=== PATIENT | female | born 1960 | race Caucasian/White ===

== ENCOUNTER 2020-09-01 14:14 | Outpatient (REF) | payer OTHER, SELFPAY ==
--- NOTE | ~2020-09-01 | MM_ITS ---
EXAMINATION: MM SCREENING DIGITAL BREAST TOMOSYNTHESIS, BILATERAL CLINICAL INFORMATION: Screening. Asymptomatic. The lifetime risk of breast cancer based on the Tyrer-Cuzick Model is 8%. COMPARISON: Mammography: 12/29/2019, 08/22/2018, 08/01/2017 TECHNIQUE: Digital breast tomosynthesis is performed in both the craniocaudal and mediolateral oblique views along with computer-aided detection (CAD). Synthesized 2D images are generated from the tomosynthesis. FINDINGS: The breasts are heterogeneously dense, which may obscure small masses (ACR BI-RADS breast composition Category c). Denser breast parenchymal tissue composition resides in the upper outer quadrants. The parenchymal pattern is similar to prior studies. Nodularity mid medial right breast and central lower left breast are decreased. There is no interval mass or architectural abnormality. There are some punctate calcifications again seen in the upper outer quadrants. The axilla and skin contours are unremarkable. No significant changes from prior studies. MM/MM tomosynthesis screening BI IMPRESSION: No significant changes from prior studies. ASSESSMENT: BI-RADS 2: Benign RECOMMENDATION: Routine annual mammography screening. This patient's information was entered into a reminder system with a target due date for their next mammogram.
== END 2020-09-01 14:15 | disposition home or self-care (01) ==
LOC: HO.MAMMO 14:14
PROVIDERS: Visit Provider Internal Medicine
DX: Z12.31 Encounter for screening mammogram for malignant neoplasm of breast (principal)
CPT/HCPCS: 77063; 77067

== ENCOUNTER 2021-01-28 02:52 | Emergency (ER) | payer OTHER, SELFPAY ==
--- NOTE | ~2021-01-28 | CT_ITS ---
EXAMINATION: CT ABDOMEN AND PELVIS WITHOUT CONTRAST CLINICAL INFORMATION: Right flank pain COMPARISON: None TECHNIQUE: Multidetector volumetric imaging was performed from the superior aspect of the liver through the pubic symphysis. Sagittal and coronal reformatted images were obtained on the technologist's workstation. This CT examination was performed using dose optimization techniques as appropriate, variously including the following: *Automated exposure control *Adjustment of mA and/or kV according to patient size (this includes techniques or standardized protocols for targeted exams where dose is matched to indication/reason for exam; i.e. extremities or head) *Use of iterative reconstruction technique DLP: 646 mGy-cm FINDINGS: LUNG BASES: The visualized lung bases are unremarkable. LIVER, GALLBLADDER, AND BILIARY TREE: Liver normal in size, contour and morphology. Mild diffuse hepatic steatosis. No focal liver lesions. No intra or extrahepatic biliary dilatation. Gallbladder unremarkable. PANCREAS: Unremarkable. SPLEEN: Unremarkable. ADRENAL GLANDS: Unremarkable. KIDNEYS AND URETERS: The kidneys are normal in size, shape, and attenuation. No hydronephrosis, hydroureter, or calculi seen. No perinephric stranding. BLADDER: Unremarkable. GASTROINTESTINAL TRACT: The small and large bowel are unremarkable. The appendix is unremarkable. ABDOMINAL WALL: No significant hernia is appreciated. LYMPH NODES: Normal. VASCULAR: Aorta mildly atherosclerotic. There is a 1.3 cm sac splenic artery aneurysm. PELVIC VISCERA: Leiomyomatous uterus, with dominant posterior uterine fibroid measuring 5.6 cm, subserosal however not pedunculated. No adnexal abnormalities. OSSEOUS STRUCTURES: No acute or suspicious osseous abnormalities. CT/CT abdomen pelvis wo con IMPRESSION: * No acute findings within the abdomen or pelvis. * No urinary calculi or hydronephrosis. * Mild hepatic steatosis.
[2021-01-28 03:08] VITALS: BP 167/72; PULSE 70; RESP 16; TEMP 36.2; O2SAT 98; BMI 44.5
[2021-01-28 03:29] LABS: MANUAL DIFF FLAG NO
[2021-01-28 03:30] LABS: Basophils Percent Auto 0.4 % (0-2); Eosinophils Absolute Auto 0.2 X10*3/uL (0.0-0.4); Eosinophils Percent Auto 2.7 % (0-4); Hematocrit 40.7 % (37.0-47.0); Hemoglobin 13.7 g/dl (12.0-16.0); Imm Gran Abs Auto 0.02 X10*3/uL (0.00-0.03); Imm Gran Pct Auto 0.3 % (0.0-0.4); Lymphocytes Absolute Auto 2.1 X10*3/uL (1.2-4.9); Lymphocytes Percent Auto 27.7 % (20-40); Mean Corpuscular HGB Conc 33.7 g/dl (31.0-35.0); Mean Corpuscular Volume 89.1 fL (80.0-98.0); Monocytes Absolute Auto 0.8 X10*3/uL (0.1-1.2); Monocytes Percent Auto 10.6 % (2-11); Neutrophils Absolute Auto 4.5 x10*3/uL (2.0-8.3); Neutrophils Percent Auto 58.3 % (45-73); Platelet Count 294 X10*3/uL (160-400); Red Blood Count 4.57 X10*6/uL (4.20-5.50); Red Cell Distribution Width 12.4 % (11.0-16.0); White Blood Count 7.7 X10*3/uL (4.8-10.8)
[2021-01-28 03:45] LABS: Appearance Urine CLEAR; Color Urine YELLOW; Glucose Urine UA NEG (NEG); Leukocyte Esterase Urine NEG (NEG); Nitrite Urine NEG (NEG); PH 6.5 (5.0-8.0); Specific Gravity - Urine 1.025 (1.005-1.025); UACC Culture Trigger NO; Urine Blood 1+ (NEG); Urine Ketones NEG (NEG); Urine Protein NEG (NEG-TRACE)
[2021-01-28 03:47] LABS: Alanine Aminotransferase 28 U/L (0-31); Albumin Level 4.2 g/dL (3.5-5.0); Alkaline Phosphatase 104 U/L (39-117); Anion Gap 13 (12-20); Aspartate Amino Transferase 19 U/L (5-31); Bilirubin Total 0.6 mg/dL (0.0-1.0); Blood Urea Nitrogen 17 mg/dL (9-16); Calcium 9.3 mg/dL (8.4-10.2); Carbon Dioxide 24 mmol/L (22-29); Chloride 108 mmol/L (96-108); Creatinine Clr Calc Pharmacy 52.7; Estimated Glomerular Filt Rate > 60; Glucose Random 134 mg/dL (60-115); Lipase 25 U/L (8-78); Sodium 141 mmol/L (135-145); Total Protein 7.3 g/dL (6.5-8.0)
--- NOTE | 2021-01-28 03:47 | ED_ITS ---
HPI - Abdominal Pain General Chief Complaint: Abdominal Pain Stated Complaint: Flank pain Time Seen by Provider: 01/28/21 03:46 History of Present Illness HPI narrative: 60 years old presents today with having flank pain over the right side. Rating down to the right lower quadrant. Sharp in nature onset about 4-5 days ago. On and off no specific triggers. No fever no chills. No history kidney stone. Positive history of nausea. Patient denies any pain on urination. Denies any frequency. Denies any change in bowel movements. No cough congestion or respiratory symptoms. No diaphoresis Related Data Allergies Allergy/AdvReac Type Severity Reaction Status Date / Time No Known Allergies Allergy Unverified 01/28/21 03:10 Review of Systems Review of Systems Positive pain in the right flank area Yes all other systems are reviewed and are negative Physical Exam Vital Signs: Vital Signs: Last Vital Signs Temp 97.1 F 01/28/21 03:08 Pulse 70 01/28/21 03:08 Resp 16 01/28/21 03:08 BP 167/72 H 01/28/21 03:08 Pulse Ox 98 01/28/21 03:08 BMI result Body Mass Index 44.5 Appearance: Alert. Oriented X3. No acute distress. Eyes: Pupils equal, round and reactive to light. ENT: Pharynx normal. Neck: Normal inspection. Neck supple. No lymph nodes noted. No crepitus CVS: Normal heart rate and rhythm. Pulses normal. Normal S1 and S2 Respiratory: No respiratory distress. Breath sounds normal. No Wheezing. No rales Abdomen: Soft and nontender. No rigidity. No distention. good BS x4 Skin: Skin warm and dry. Normal skin color. Normal skin turgor. Extremities: No lower extremity edema. Neurovascular intact to all extremities. No Lacerations. No Rash Neuro: Oriented X 3. No motor deficit. No sensory deficit. Moving all extermities. No slurred speech MDM - Abdominal Pain MDM Narrative Medical decision making narrative: Patient's white count was normal. Electrolytes unremarkable. CT scan of the abdomen pelvis negative for any acute evidence of kidney stone, obstruction, abscess, appendicitis. Will discharge patient home close follow-up on an outpatient basis. In stable condition. Urine showed no signs of infection. Differential Diagnosis Differential diagnosis: Likely abdominal pain Medical Records Attestation: I reviewed the patient's medical records. Lab Data Attestation: I reviewed the patient's lab results. Result diagrams: 01/28/21 03:24 01/28/21 03:24 Labs: Lab Results 01/28/21 01/28/21 01/28/21 Range/Units 03:21 03:24 03:24 WBC 7.7 (4.8-10.8) X10*3/uL RBC 4.57 (4.20-5.50) X10*6/uL Hgb 13.7 (12.0-16.0) g/dl Hct 40.7 (37.0-47.0) % MCV 89.1 (80.0-98.0) fL MCH 30.0 (27.0-33.0) pg MCHC 33.7 (31.0-35.0) g/dl RDW 12.4 (11.0-16.0) % Plt Count 294 (160-400) X10*3/uL MPV 10.0 (9.4-12.3) fL Immature Gran % (Auto) 0.3 (0.0-0.4) % Neut % (Auto) 58.3 (45-73) % Lymph % (Auto) 27.7 (20-40) % Sac % (Auto) 10.6 (2-11) % Eos % (Auto) 2.7 (0-4) % Baso % (Auto) 0.4 (0-2) % Lymph # (Auto) 2.1 (1.2-4.9) X10*3/uL Sac # (Auto) 0.8 (0.1-1.2) X10*3/uL Eos # (Auto) 0.2 (0.0-0.4) X10*3/uL Baso # (Auto) 0.0 (0.0-0.2) X10*3/uL Abs Immat Gran (auto) 0.02 (0.00-0.03) X10*3/uL Absolute Neuts (auto) 4.5 (2.0-8.3) x10*3/uL Absolute Nucleated RBC 0.000 (0.0-0.012) X10*3/uL Nucleated RBC % (auto) 0.0 (0.0-0.2) /100WBC Sodium 141 (135-145) mmol/L Potassium 4.0 (3.3-5.1) mmol/L Chloride 108 (96-108) mmol/L Carbon Dioxide 24 (22-29) mmol/L Anion Gap 13 (12-20) BUN 17 H (9-16) mg/dL Creatinine 0.72 (0.5-1.4) mg/dL Estim Creat Clear Calc 52.7 Estimated GFR > 60 Random Glucose 134 H (60-115) mg/dL Calcium 9.3 (8.4-10.2) mg/dL Total Bilirubin 0.6 (0.0-1.0) mg/dL AST 19 (5-31) U/L ALT 28 (0-31) U/L Alkaline Phosphatase 104 (39-117) U/L Total Protein 7.3 (6.5-8.0) g/dL Albumin 4.2 (3.5-5.0) g/dL Lipase 25 (8-78) U/L Urine Color YELLOW Urine Appearance CLEAR Urine pH 6.5 (5.0-8.0) Ur Specific [place] 1.025 (1.005-1.025) Urine Protein NEG (NEG-TRACE) MG/DL Urine Glucose (UA) NEG (NEG) MG/DL Urine Ketones NEG (NEG) MG/DL Urine Blood 1+ H (NEG) Urine Nitrite NEG (NEG) Ur Leukocyte Esterase NEG (NEG) Urine RBC 5-9 H (0) /HPF Urine WBC 1-4 (0-4) /HPF Ur Squamous Epith Cells 2+ /LPF Urine Bacteria 2+ /LPF Urine Mucus 2+ /LPF Discharge Plan Discharge Clinical Impression: Abdominal pain Patient Disposition: Home, Self-Care Instructions: Abdominal Pain (ED) Referrals: Physician,Unknown J [Primary Care Provider] - 2 days [facility] Past Medical History Attestation statement: The following information was validated with the patient. Social History Social History Advance Directives: No
[2021-01-28 03:56] LABS: Squamous Epithelial Cell Urine 2+ /LPF
[2021-01-28] MEDS: Ketorolac Tromethamine 15 MG/ML VIAL IVPUSH (03:56)
[2021-01-28 03:57] LABS: Bacteria Urine 2+ /LPF; Mucus Urine 2+ /LPF
[2021-01-28] MEDS: 0.9 % Sodium Chloride 1,000 ML 999 ML IV (03:57)
== END 2021-01-28 05:24 | disposition home or self-care (01) ==
PROVIDERS: Emergency Provider Emergency Medicine Emergency Medical Services
DX: R10.9 Unspecified abdominal pain (principal)
CPT/HCPCS: 36415; 74176; 80053; 81001; 83690; 85025; 96361; 96374; 99284; J1885

== ENCOUNTER 2021-12-18 08:22 | Outpatient (REF) | payer OTHER, SELFPAY ==
[2021-12-18 10:13] LABS: Hematocrit 43.7 % (37.0-47.0); Hemoglobin 14.4 g/dl (12.0-16.0); Mean Corpuscular Volume 88.1 fL (80.0-98.0); Mean Platelet Volume 10.5 fL (9.4-12.3); Platelet Count 334 X10*3/uL (160-400); Red Blood Count 4.96 X10*6/uL (4.20-5.50); Red Cell Distribution Width 12.4 % (11.0-16.0); White Blood Count 6.3 X10*3/uL (4.8-10.8)
[2021-12-18 10:30] LABS: Estimated Average Glucose 143 mg/dL; Hemoglobin A1c % 6.6 %
[2021-12-18 10:54] LABS: Alanine Aminotransferase 52 U/L (0-31); Albumin Level 4.4 g/dL (3.5-5.0); Alkaline Phosphatase 124 U/L (39-117); Anion Gap 17 (12-20); Aspartate Amino Transferase 34 U/L (5-31); Bilirubin Total 0.8 mg/dL (0.0-1.0); Blood Urea Nitrogen 15 mg/dL (9-16); Calcium 9.8 mg/dL (8.4-10.2); Carbon Dioxide 24 mmol/L (22-29); Chloride 102 mmol/L (96-108); Cholesterol 249 mg/dL; Estimated Glomerular Filt Rate > 60; Glucose Random 125 mg/dL (60-115); HDL Cholesterol 54 mg/dL; LDL Cholesterol Calculated 173 mg/dl; Potassium 4.3 mmol/L (3.3-5.1); Sodium 139 mmol/L (135-145); Triglycerides 110 mg/dL
[2021-12-18 11:01] LABS: HBS Num1 34.32 mIU/mL (0-7.99); HBc Num1 0.09 S/CO (0.00-0.79); HBsAGNum1 0.17 S/CO (0.00-0.99); HIV AB/AG Nonreactive (Nonreactive); HIV Num 1 0.07 S/CO (0.00-0.99); Hepatitis B Core Antibody Nonreactive (Nonreactive); Hepatitis B Surface Antigen Negative (Negative); ~HepC Num1 0.21 S/CO (0.00-0.79); ~Hepatitis B Surface Antibody REACTIVE (Nonreactive); ~Hepatitis C Antibody Nonreactive (Nonreactive)
[2021-12-18 11:02] LABS: TSH reflex Free T4 0.86 uIU/mL (0.32-4.0)
[2021-12-18 11:07] LABS: Syphilis Screen Nonreactive (Nonreactive)
== END 2021-12-18 08:23 | disposition home or self-care (01) ==
LOC: HO.LAB 08:22
PROVIDERS: PCP Nurse Practitioner Primary Care; Visit Provider Nurse Practitioner Primary Care
DX: Z00.00 Encounter for general adult medical examination without abnormal findings (principal); Z11.4 Encounter for screening for human immunodeficiency virus [HIV]; Z11.3 Encounter for screening for infections with a predominantly sexual mode of transmission; Z13.220 Encounter for screening for lipoid disorders; R73.03 Prediabetes
CPT/HCPCS: 36415; 80053; 80061; 83036; 84443; 85027; 86704; 86706; 86780; 86803; 87340; 87389

== ENCOUNTER 2022-01-13 14:37 | Outpatient (REF) | payer OTHER, SELFPAY ==
--- NOTE | ~2022-01-13 | MM_ITS ---
EXAMINATION: MM SCREENING DIGITAL BREAST TOMOSYNTHESIS, BILATERAL CLINICAL INFORMATION: Screening. Asymptomatic. The lifetime risk of breast cancer based on the Tyrer-Cuzick Model is 10%. COMPARISON: Mammography: 09/01/2020, 08/28/2019, 08/22/2018 TECHNIQUE: Digital breast tomosynthesis is performed in both the craniocaudal and mediolateral oblique views along with computer-aided detection (CAD). Synthesized 2D images are generated from the tomosynthesis. FINDINGS: The breasts are heterogeneously dense, which may obscure small masses (ACR BI-RADS breast composition Category c). There are no significant masses, abnormal calcifications, or other abnormalities. Parenchymal pattern is similar to prior studies. No developing density or interval architectural abnormality. The axilla and skin contours are unremarkable. MM/MM tomosynthesis screening BI IMPRESSION: No mammographic evidence of malignancy. ASSESSMENT: BI-RADS 1: Negative RECOMMENDATION: Routine annual mammography screening. This patient's information was entered into a reminder system with a target due date for their next mammogram.
== END 2022-01-13 14:38 | disposition home or self-care (01) ==
LOC: HO.MAMMO 14:37
PROVIDERS: PCP Nurse Practitioner Primary Care; Visit Provider Nurse Practitioner Primary Care
DX: Z12.31 Encounter for screening mammogram for malignant neoplasm of breast (principal)
CPT/HCPCS: 77063; 77067

== ENCOUNTER 2022-01-28 12:39 | Outpatient (REF) | payer OTHER, SELFPAY ==
--- NOTE | ~2022-01-28 | MM_ITS ---
EXAMINATION: BONE DENSITOMETRY CLINICAL INDICATION: Menopausal state. COMPARISON: None (current study represents initial baseline exam). TECHNIQUE: Using a [employer] DXA System (software version: 13.1) manufactured by [employer], dual-energy x-ray absorptiometry was performed of the lumbar spine and left hip. The images are of good technical quality. Summary results are attached. FINDINGS: AP SPINE L1-L4: BMD 0.971 g/cm2, Z-score -0.7, T-score -1.7, osteopenia. LEFT FEMUR, NECK: BMD 0.704 g/cm2, Z-score -1.3, T-score -2.4, osteopenia. LEFT FEMUR, TOTAL: BMD 0.934 g/cm2, Z-score 0.2, T-score -0.6, normal. IDENTIFIED RISK FACTORS: Menopause, tobacco use (current smoker). HISTORY OF FRACTURE: None listed. MEDICATIONS: None listed. MM/XR DEXA axial skeleton IMPRESSION: 1. DIAGNOSIS: Osteopenia based on the lowest T-score value of -2.4 in the femoral neck applying World Health Organization criteria. 2. 10-YEAR FRACTURE RISK PREDICTION, FRAX: Major osteoporotic fracture (clinical spine, forearm, hip or shoulder) 6.4%. Hip fracture 1.7%. 3. Treatment Recommendations: NOF guidelines recommend consideration for treatment in postmenopausal women and men age 50 and older presenting with the following: -A hip or vertebral (clinical or morphometric) fracture. -T-score less than or equal to -2.5 at the femoral neck or spine after appropriate evaluation to exclude secondary causes. -Low bone mass at the hip or spine and a 10-year fracture probability by FRAX of greater than or equal to 3% for hip fracture or greater than or equal to 20% for major osteoporotic fracture based on the [place] adapted WHO algorithm. 4. Other Recommendations: All treatment decisions require clinical judgment and consideration of individual patient factors, including patient preferences, comorbidities, previous drug use, risk factors not captured in the FRAX model (e.g. frailty, falls, vitamin D deficiency, increased bone turnover, interval significant decline in bone density) and possible under or overestimation of fracture risk by FRAX. Additional medical evaluation for secondary cause of low bone mineral density may be appropriate. FUTURE SCAN RECOMMENDATION: People with diagnosed cases of osteoporosis or at high risk for fracture should have regular bone mineral density tests. For patients eligible for Medicare, routine testing is allowed once every 2 years. The testing frequency can be increased to one year for patients who have rapidly progressing disease, those who are receiving or discontinuing medical therapy to restore bone mass, or have additional risk factors.
== END 2022-01-28 12:40 | disposition home or self-care (01) ==
LOC: HO.MAMMO 12:39
PROVIDERS: PCP Nurse Practitioner Primary Care; Visit Provider Advanced Practice Midwife
DX: Z13.820 Encounter for screening for osteoporosis (principal); Z78.0 Asymptomatic menopausal state
CPT/HCPCS: 77080

== ENCOUNTER 2022-02-26 12:49 | Outpatient (REF) | payer OTHER, SELFPAY ==
--- NOTE | ~2022-02-26 | US_ITS ---
EXAMINATION: US PELVIS COMPLETE CLINICAL INFORMATION: Pelvic and perineal pain COMPARISON: CT abdomen pelvis 01/28/2021 TECHNIQUE: Transabdominal imaging was performed. FINDINGS: The uterus mildly enlarged measuring 9.7 x 5.2 x 6.7 cm. The endometrium was not identified via transabdominal technique and underlying myomas. 2 uterine myomas including a 3.6 cm intramural myoma and a 3.8 mm subserosal myoma. Ovaries were not identified sonographically. No adnexal mass identified within the limitations of transabdominal technique. There is no pelvic free fluid. US/US pelvic complete IMPRESSION: Limited transabdominal only exam. Enlarged myomatous uterus with subserosal and intramural myomas measuring up to 3.8 cm. The endometrium was not identified within limitations. Ovaries were not identified sonographically. No adnexal mass.
== END 2022-02-26 12:50 | disposition home or self-care (01) ==
LOC: HO.US 12:49
PROVIDERS: PCP Nurse Practitioner Primary Care; Visit Provider Advanced Practice Midwife
DX: D25.9 Leiomyoma of uterus, unspecified (principal)
CPT/HCPCS: 76856

== ENCOUNTER 2022-11-30 12:39 | Outpatient (REF) | payer OTHER, SELFPAY ==
--- NOTE | ~2022-11-30 | US_ITS ---
EXAMINATION: US PELVIS CLINICAL INFORMATION: Benign neoplasm of connective tissue and soft tissue. COMPARISON: Pelvic ultrasound 02/26/2022. TECHNIQUE: Transabdominal and transvaginal imaging was performed. FINDINGS: Hysterectomy. The right ovary is not seen. The left ovary is not seen. No pelvic free fluid. US/US pelvic and transvaginal IMPRESSION: Hysterectomy. Neither ovary is seen. No pelvic free fluid.
== END 2022-11-30 12:40 | disposition home or self-care (01) ==
LOC: HO.US 12:39
PROVIDERS: PCP Nurse Practitioner Primary Care; Visit Provider Advanced Practice Midwife
DX: D21.9 Benign neoplasm of connective and other soft tissue, unspecified (principal)
CPT/HCPCS: 76830; 76856

== ENCOUNTER 2023-09-27 09:37 | Outpatient (REF) | payer OTHER, SELFPAY ==
[2023-09-27 11:19] LABS: MANUAL DIFF FLAG NO
[2023-09-27 11:26] LABS: Basophils Percent Auto 0.5 % (0-2); Eosinophils Absolute Auto 0.2 X10*3/uL (0.0-0.4); Eosinophils Percent Auto 2.4 % (0-4); Hematocrit 40.7 % (37.0-47.0); Hemoglobin 13.9 g/dl (12.0-16.0); Imm Gran Abs Auto 0.02 X10*3/uL (0.00-0.03); Imm Gran Pct Auto 0.3 % (0.0-0.4); Lymphocytes Absolute Auto 1.5 X10*3/uL (1.2-4.9); Lymphocytes Percent Auto 22.8 % (20-40); Mean Corpuscular HGB Conc 34.2 g/dl (31.0-35.0); Mean Corpuscular Hemoglobin 29.6 pg (27.0-33.0); Mean Corpuscular Volume 86.8 fL (80.0-98.0); Mean Platelet Volume 10.3 fL (9.4-12.3); Monocytes Absolute Auto 0.5 X10*3/uL (0.1-1.2); Monocytes Percent Auto 7.7 % (2-11); Neutrophils Absolute Auto 4.4 x10*3/uL (2.0-8.3); Neutrophils Percent Auto 66.3 % (45-73); Platelet Count 333 X10*3/uL (160-400); Red Blood Count 4.69 X10*6/uL (4.20-5.50); Red Cell Distribution Width 13.1 % (11.0-16.0); White Blood Count 6.6 X10*3/uL (4.8-10.8)
[2023-09-27 11:43] LABS: Estimated Average Glucose 146 mg/dL; Hemoglobin A1c % 6.7 % (<6.0)
[2023-09-27 12:03] LABS: Alanine Aminotransferase 51 U/L (0-31); Albumin Level 4.1 g/dL (3.5-5.0); Alkaline Phosphatase 128 U/L (39-117); Anion Gap 15 (12-20); Aspartate Amino Transferase 34 U/L (5-31); Bilirubin Total 0.7 mg/dL (0.0-1.0); Blood Urea Nitrogen 15 mg/dL (9-16); Calcium 9.3 mg/dL (8.4-10.2); Carbon Dioxide 26 mmol/L (22-29); Chloride 103 mmol/L (96-108); Cholesterol 218 mg/dL (<200); Estimated Glomerular Filt Rate > 60; Glucose Random 148 mg/dL (60-115); HDL Cholesterol 58 mg/dL (>40); LDL Cholesterol Calculated 129 mg/dL (<100); Potassium 3.9 mmol/L (3.3-5.1); Sodium 140 mmol/L (135-145); Total Protein 7.4 g/dL (6.5-8.0); Triglycerides 159 mg/dL (<150); Vitamin D 25-OH Total 26.1 ng/mL (>30)
== END 2023-09-27 09:38 | disposition home or self-care (01) ==
LOC: HO.HHCL 09:37
PROVIDERS: Visit Provider Nurse Practitioner Primary Care
DX: R73.03 Prediabetes (principal); E78.5 Hyperlipidemia, unspecified; M79.605 Pain in left leg; M85.80 Other specified disorders of bone density and structure, unspecified site; Z78.0 Asymptomatic menopausal state
CPT/HCPCS: 36415; 80053; 80061; 82306; 83036; 85025

== ENCOUNTER 2023-09-27 15:28 | Outpatient (REF) | payer OTHER, SELFPAY ==
--- NOTE | ~2023-09-27 | US_ITS ---
EXAMINATION: US SOFT TISSUE OF THE NECK CLINICAL INFORMATION: Localized enlarged lymph nodes. COMPARISON: None available. TECHNIQUE: Linear transducer grayscale and color Doppler examination of the cervical neck. FINDINGS: A few normal-sized, normal-appearing lymph nodes are noted within the right and left neck. No well-organized superficial fluid collection is identified. No abnormal color Doppler flow. Incidentally noted is a 1.2 cm left thyroid nodule which contains some peripheral calcification. US/US soft tiss head and/or neck IMPRESSION: 1. Normal-appearing lymph nodes are noted within the right and left neck. 2. Incidentally noted is a 1.2 cm left thyroid nodule. Dedicated thyroid ultrasound may be warranted. Electronically signed by: Niko Hansen MD 10/22/2023 09:27 AM EDT
== END 2023-09-27 15:29 | disposition home or self-care (01) ==
LOC: HO.MAMMO 15:28
PROVIDERS: Visit Provider Nurse Practitioner Primary Care
DX: Z12.31 Encounter for screening mammogram for malignant neoplasm of breast (principal); R59.0 Localized enlarged lymph nodes; F17.200 Nicotine dependence, unspecified, uncomplicated
CPT/HCPCS: 76536; 77063; 77067

== ENCOUNTER → 2023-09-27 15:45 | Outpatient (BNV) | payer OTHER, SELFPAY | PROVIDERS: Visit Provider Radiology Diagnostic Radiology | DX: Z12.31 Encounter for screening mammogram for malignant neoplasm of breast (principal) | CPT/HCPCS: 77063; 77067 ==

== ENCOUNTER 2023-10-14 12:52 | Outpatient (AMB) | payer OTHER, SELFPAY ==
--- NOTE | 2023-10-14 12:55 | MHC.OFFVIS ---
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 Patient reports numbness and tingling, right is worse than the left, that occurs daily and constant making it difficult to implementation lead and squeeze. Patient states her right middle finger has been locking on. Report she is not taking anything for pain. Has not tried braces, injections, or OT. Denies any prior injuries or surgeries on the hands. 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 The patient reports that she has previously had a nerve conduction study performed, although she is unsure where this was performed, that revealed bilateral carpal tunnel syndrome. Today, the patient reports that she is experiencing dense numbness on the right side, while symptoms on the left side are intermittent, but daily, worse at night. Patient also reports significant pain in bilateral hands that worsens at night. The patient also reports that she has been experiencing locking and catching of the right middle finger. No other acute complaints or concerns at this time. 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 Normal sensation to all other digits in the right hand today. Normal sensation in the tips of all digits of the left hand today. No thenar or intrinsic wasting. Diminished APB muscle firing on the right when compared to the left Good finger cross. Vascular: Capillary refill brisk. ROM: Patient can make a fist and extend all their digits. Skin: No lacerations or abrasions noted. General: No ecchymosis. No erythema or evidence of infection. There is visible and palpable locking and catching of the right middle finger, with no tenderness to palpation over the A1 justo. Assessment & Plan Assessment & Plan (1) Trigger finger, right middle finger: Code(s): M65.331 - Trigger finger, right middle finger Category: Medical (2) Numbness and tingling in both hands: Code(s): R20.0 - Anesthesia of skin; R20.2 - Paresthesia of skin Category: Medical Plan 1. Bilateral hand numbness and tingling Dense numbness on the right, worse at night Symptoms in the left intermittent, but daily, worse at night Patient is educated about this condition Due to the fact that we have no up-to-date nerve conduction study on file, the patient is referred for new EMG and nerve conduction study at this time Patient is amenable to this plan Patient will follow-up after nerve conduction study for discussion of further treatment options 2. Trigger finger, right middle finger Patient is educated about the operative and non operative treatment options available for this condition The patient would not like to receive any injection for trigger finger at this time Patient would like to discuss surgery Due to the fact that the patient will be having an EMG and nerve conduction study done on bilateral wrists, the patient will hold off on signing up for surgery at this time until results are back from EMG and nerve conduction study, to determine if carpal tunnel release should be performed at the same time Patient is amenable to this plan Patient will follow-up after nerve conduction study for discussion of further treatment options, sooner with any acute concerns Orders: Orders NE electromyogram (EMG) Today R20.0 - Anesthesia of skin, R20.2 - Paresthesia of skin NE nerve conduction velocity Today R20.0 - Anesthesia of skin, R20.2 - Paresthesia of skin Coding Level of Care Code New Pt Level 3 (33623) Diagnoses Trigger finger, right middle finger M65.331 Numbness and tingling in both hands R20.0; R20.2
== END 2023-10-14 13:21 | disposition home or self-care (01) ==
PROVIDERS: PCP Nurse Practitioner Primary Care
DX: M65.331 Trigger finger, right middle finger (principal); R20.0 Anesthesia of skin; R20.2 Paresthesia of skin
CPT/HCPCS: 99203

== ENCOUNTER → 2023-10-14 12:52 | Outpatient (BNVA) | payer OTHER, SELFPAY | PROVIDERS: PCP Nurse Practitioner Primary Care ==

== ENCOUNTER 2023-11-21 09:08 | Outpatient (REF) | payer OTHER, SELFPAY ==
--- NOTE | ~2023-11-21 | FL_ITS ---
EXAMINATION: XR FLUOROSCOPY UPPER GI WITH AIR CLINICAL INFORMATION: Dysphagia/choking COMPARISON: None TECHNIQUE: Fluoroscopic air contrast upper GI examination was performed utilizing standard techniques with thin and thick barium and effervescent granules. Numerous spot images were obtained. FINDINGS: Lateral cine images of the oropharynx and hypopharynx demonstrate normal swallow mechanism with normal epiglottic inversion and soft palate elevation. No tracheal penetration, glottic or subglottic aspiration identified. No nasopharyngeal reflux present. Hypopharyngeal structures appear normal without evidence of mass or diverticulum. There is mild cricopharyngeal achalasia. Dual and single contrast images of the esophagus demonstrate normal caliber, contour, and mucosal pattern. No evidence of stricture, mass, or ulcerations identified. Esophageal peristalsis was normal. A small type I hiatal hernia is present. Mild gastroesophageal reflux is seen in the distal esophagus. Dual contrast and single contrast images of the stomach demonstrated a normal contour. There are multiple tiny foci of contrast pooling in the fundus of the stomach that may present small superficial aphthous ulcers. No masses are present Contrast freely passed into the gastric antrum and duodenal bulb without delay. Single and air-contrast images of the duodenal bulb demonstrate no abnormality. The duodenal sweep has a normal appearance, course, and mucosal fold appearance. The imaged proximal jejunum has a normal fold pattern and caliber. Eggshell calcification overlying posterolateral gastric fundus is consistent with a splenic artery aneurysm. FLUOROSCOPY TIME: 4 minutes 37 seconds Number of Spot Images: 8 Number of Cine: 15 DOSE AREA PRODUCT: 3124 uGy-m2 (microgray-meter squared) FL/FL barium swallow with air IMPRESSION: 1. Mild cricopharyngeal achalasia. 2. Tiny type I hiatal hernia with mild gastroesophageal reflux. 3. Multiple tiny foci of contrast pooling in the fundus of the stomach that may present small superficial aphthous ulcers. Findings suggest gastritis. Recommend correlation with EGD. This procedure was performed by Lucien Valentin PA-C, and supervised by Dr. Rangel Electronically signed by: Wicho Rangel MD 11/21/2023 05:07 PM EDT
== END 2023-11-21 09:09 | disposition home or self-care (01) ==
LOC: HO.XRAY 09:08
PROVIDERS: PCP Nurse Practitioner Primary Care; Visit Provider Nurse Practitioner Primary Care
DX: R09.89 Other specified symptoms and signs involving the circulatory and respiratory systems (principal)
CPT/HCPCS: 74221

== ENCOUNTER → 2023-11-21 09:12 | Outpatient (BNV) | payer OTHER, SELFPAY | PROVIDERS: PCP Nurse Practitioner Primary Care; Visit Provider Radiology Diagnostic Radiology | DX: R13.10 Dysphagia, unspecified (principal) | CPT/HCPCS: 74246 ==

== ENCOUNTER 2023-11-25 09:52 | Outpatient (AMB) | payer OTHER, SELFPAY ==
--- NOTE | 2023-11-25 08:20 | MHC.OFFVIS ---
Intake Visit Reasons: Current Smoker Allergies No Known Allergies Allergy (Unverified 10/14/23 12:57) HPI HPI Current Smoker: Details: Initial visit for this 63yo smoker with a 23PYH. Patient started smoking at age 17 for 46 years at 1/2ppd. Currently at 1-2 cigs/day. . Denies marijuana use. Denies second hand smoke exposure. Denies exposure to chemicals or substances like asbestos. . Denies known family history of lung cancer. Denies personal history of cancers. Denies chest CT in last year. . Denies recent travel outside the [place]. Denies recent respiratory illness or recent hospitalization for respiratory issues. Admits testing positive for COVID. Admits receiving COVID Vaccine. x3 . Denies fever, chills, new/worsening cough, hemoptysis, hoarseness or dysphagia. Denies significant chest pain, significant dyspnea or unintentional weight loss. Patient Lung Cancer Screening Questionnaire reviewed with patient by provider. . Shared Decision Making Completed. Patient meets criteria. Discussed in detail with patient, the risk vs benefit of LDCT screening. Patient consents to proceed with scan. Discussed smoking cessation. [facility] Medical History (Updated 11/25/23 @ 10:12 by Carina Barron PA-C) GERD (gastroesophageal reflux disease) Nicotine dependence, cigarettes, uncomplicated Surgical History (Updated 11/25/23 @ 10:15 by Carina Barron PA-C) History of hysterectomy History of tonsillectomy Social History (Updated 11/25/23 @ 10:13 by Carina Barron PA-C) Patient Tobacco Use Status: Current everyday Tobacco user Years Smoked: (onset 17yo, 1/2ppd x 46yrs, now 1-2cig/day - 23pyh) Current occupational status: employed Current occupation: rt handed, [employer] Assessment & Plan Assessment & Plan (1) Nicotine dependence, cigarettes, uncomplicated: Comment: (onset 17yo, 1/2ppd x 46yrs, now 1-2cig/day - 23pyh) Code(s): F17.210 - Nicotine dependence, cigarettes, uncomplicated Category: Medical Plan: - SDM visit completed today in office. - Patient meets criteria for LDCT for lung cancer screening purposes and is asymptomatic. - Smoking cessation counseling offered. Patients can always call [phone]. - Will arrange for a LDCT scan of the chest for screening purposes at [facility]. - Risks, benefits, and alternatives were discussed in detail and the patient agrees to proceed. - Risks discussed include but are not limited to: radiation exposure, anxiety during testing and while awaiting results, false negatives, false positives and possibility of additional intervention such as further imaging or surgical procedures for benign disease. - Benefits are obviously detection of lung cancer at an early stage which can lead to improved outcomes. - Discussed the importance of screening program compliance with adherence to yearly LDCT scan as scheduled - or sooner interval scans for personalized screening regimen. - Discussed follow up plan. Our office will send a letter discussing results and if needed set up phone call and office visit based on CT findings. - Patient educated on results categorization and the management decisions for suspicious findings potentially found on the screening LDCT scan. Any patient with a Lung RADS score of 3 or 4 will be reviewed by a multidisciplinary team at [facility] to form a plan of action in regards to scan findings. - If further work up is warranted for a suspicious lung finding this will be followed by the Lung Cancer Screening program in conjunction with the Thoracic Surgery Department at [facility]. - A copy of the office note and LDCT will be sent to the patient's PCP - as well as documentation on any associated further plans of care. - Incidental findings on LDCT are the PCP's responsibility. These findings are indicated with an S finding on the LDCT Assessment. A note discussing the findings will be sent to the PCP who is then responsible for further management. - All questions answered.? Coding Level of Care Code Lung Cancer Screening G0296 Diagnoses Nicotine dependence, cigarettes, uncomplicated F17.210
== END 2023-11-25 10:21 | disposition home or self-care (01) ==
PROVIDERS: PCP Nurse Practitioner Primary Care; Visit Provider Physician Assistant Medical
DX: F17.210 Nicotine dependence, cigarettes, uncomplicated (principal)
CPT/HCPCS: G0296

== ENCOUNTER 2023-11-25 10:20 | Outpatient (REF) | payer OTHER, SELFPAY ==
--- NOTE | ~2023-11-25 | CT_ITS ---
EXAMINATION: CT LOW-DOSE SCREENING CHEST WITHOUT CONTRAST CLINICAL INFORMATION: Nicotine dependence, cigarettes, uncomplicated. The patient is a current smoker with a 23 pack-year history of smoking. COMPARISON: CT abdomen and pelvis 01/28/2021. TECHNIQUE: Multidetector volumetric CT imaging of the chest is performed on a Siemens SOMATOM Definition scanner without contrast using low dose technique. Additional 2D coronal and sagittal reformatted images and axial 3D maximum intensity projection (MIP) images are generated on the CT workstation. This CT examination was performed using dose optimization techniques as appropriate, variously including the following: *Automated exposure control *Adjustment of mA and/or kV according to patient size (this includes techniques or standardized protocols for targeted exams where dose is matched to indication/reason for exam; i.e. extremities or head) *Use of iterative reconstruction technique TOTAL EXAM DLP: 50 mGy-cm. CTDIvol: 1.69 mGy. FINDINGS: PULMONARY NODULES: No suspicious pulmonary nodules. There is a 2 mm subpleural posterior right upper lobe nodule (5:94). LUNGS: Lungs bilaterally symmetrically expanded. There is minimal emphysema and bronchial thickening without bronchiectasis. No effusion or pneumothorax. Central airways patent. MEDIASTINUM: No mediastinal, hilar or axillary adenopathy or free fluid collection. CORONARY ARTERY CALCIFICATION: None visualized on this study. THYROID GLAND: Unremarkable to the extent seen. CARDIOVASCULAR STRUCTURES: Aortic and heart size normal. No pericardial effusion. CHEST WALL/AXILLA: Unremarkable. UPPER ABDOMEN: There is a rim calcified 1.3 cm splenic artery aneurysm, unchanged from 01/28/2021. There is mild hepatic steatosis. Included portions of the solid organs in the upper abdomen otherwise unremarkable on noncontrast imaging. OSSEOUS STRUCTURES: No suspicious focal findings. CT/CT lung screening IMPRESSION: No finding seen suspicious for malignancy. Incidental findings as above. ASSESSMENT: 1. Lung-RADS Category 2: Benign appearance or behavior of nodules. N/A 2. Lung-RADS Category S: Negative. There are no clinically significant or potentially clinically significant findings not related to the lungs requiring urgent additional evaluation. RECOMMENDATION: Continued routine annual low-dose CT lung screening in 1 year is recommended. An order for CT CHEST LOW DOSE CANCER SCREENING ([id number]) can be placed. Electronically signed by: Yoseph Shipley MD 01/11/2024 01:49 PM [facility]
== END 2023-11-25 10:21 | disposition home or self-care (01) ==
LOC: HO.CT 10:20
PROVIDERS: PCP Nurse Practitioner Primary Care; Visit Provider Physician Assistant Medical
DX: Z12.2 Encounter for screening for malignant neoplasm of respiratory organs (principal); F17.210 Nicotine dependence, cigarettes, uncomplicated
CPT/HCPCS: 71271; G0296

== ENCOUNTER 2023-11-28 15:44 | Outpatient (REF) | payer OTHER, SELFPAY ==
--- NOTE | ~2023-11-28 | US_ITS ---
EXAMINATION: US THYROID CLINICAL INFORMATION: Thyroid nodule on ultrasound cervical lymph nodes. COMPARISON: Ultrasound soft tissue of the neck 09/27/2023. TECHNIQUE: Linear transducer grayscale and color Doppler examination with attention to the region of the thyroid. FINDINGS: SIZE: Measurements of the thyroid lobes and nodules are given in sagittal, anteroposterior and transverse dimensions respectively. Right Thyroid Lobe: 3.2 x 1.2 x 1.4 cm, volume 2.9 mL. Parenchyma: The gland echotexture is homogeneous. Thyroid vascularity is normal. Left Thyroid Lobe: 4.4 x 1.1 x 1.2 cm, volume 3.1 mL. Parenchyma: The gland echotexture is heterogeneous. Thyroid vascularity is normal. Isthmus: 0.2 cm in maximum AP dimension. Estimated total number of nodules greater than or equal to 1 cm: 1. Dip Tanker nodules are described as follows: 1. Location: Left inferior. Size: 1.2 x 0.9 x 0.8 cm, volume 0.4 mL. Nodule characteristics: Composition: Solid (2). Echogenicity: Very hypoechoic (3). Shape: Not taller than wide (0). Margins: Smooth (0). Echogenic Foci: Peripheral calcifications (2). ACR TI-RADS total points: 7 ACR TI-RADS category: 5 2. Location: Left superior. Size: 0.8 x 0.4 x 0.6 cm, volume 0.1 mL. Nodule characteristics: Composition: Mixed cystic and solid (1). Echogenicity: Isoechoic (1). Shape: Not taller than wide (0). Margins: Smooth (0). Echogenic Foci: None (0). ACR TI-RADS total points: 2 ACR TI-RADS category: 2 NODES: No lymphadenopathy is seen in the tissue surrounding the thyroid gland. US/US thyroid IMPRESSION: 1. TR category 5 nodule left inferior gland, measuring 1.2 cm. FNA recommended. 2. TR category 2 nodule left superior gland, measuring 0.8 cm. No follow-up recommended. 3. Remainder of the thyroid gland is normal. 4. No abnormal cervical lymphadenopathy. ACR TI-RADS RECOMMENDATION REFERENCE: Ultrasound-guided fine-needle aspiration, followup ultrasound, no further follow up. * TR1 (0 point) and TR2 (2 points): No FNA or follow up. * TR3 (3 points): FNA if more than or equal to 2.5 cm in maximum dimension, followup ultrasound in 1, 3 and 5 years if 1.5 to 2.4 cm in maximum dimension. * TR4 (4-6 points): FNA if more than or equal to 1.5 cm in maximum dimension, followup ultrasound in 1, 2, 3 and 5 years if 1 to 1.4 cm in maximum dimension. * TR5 (more than or equal to 7 points): FNA if more than or equal to 1 cm in maximum dimension, followup ultrasound every year for 5 years if 0.5 to 0.9 cm in maximum dimension. * TR3, TR4 or TR5 nodules that are below the size threshold for followup receive no follow up. Electronically signed by: Wicho Rangel MD 02/02/2024 01:13 PM [facility]
== END 2023-11-28 15:45 | disposition home or self-care (01) ==
LOC: HO.US 15:44
PROVIDERS: PCP Nurse Practitioner Primary Care; Visit Provider Nurse Practitioner Primary Care
DX: E04.1 Nontoxic single thyroid nodule (principal)
CPT/HCPCS: 76536

== ENCOUNTER → 2023-11-28 15:56 | Outpatient (BNV) | payer OTHER, SELFPAY | PROVIDERS: PCP Nurse Practitioner Primary Care; Visit Provider Radiology Diagnostic Radiology | DX: E04.2 Nontoxic multinodular goiter (principal) | CPT/HCPCS: 76536 ==

== ENCOUNTER 2023-12-01 14:47 | Outpatient (REF) | payer OTHER, SELFPAY ==
--- NOTE | 2023-12-01 14:50 | EMG_ITS ---
Chief complaint: Bilateral hand numbness, right worse than left, previous EMG showed Carpal Tunnel Syndrome Reason for referral: Evaluate for Carpal Tunnel Syndrome Referred by: Ward MCINTYRE Procedure done: Bilateral upper extremities NCS/EMG Precautions and/or limitations: None The limb temperature was monitored continuously and remained between 32-36 degrees C during the performance of the NCS. Nerve Conduction Studies Anti Sensory Summary Table ?Stim Site NR Onset (ms) Norm Onset (ms) Peak (ms) Norm Peak (ms) O-P Amp (?V) Norm O-P Amp Site1 Site2 Delta-0 (ms) Dist (cm) Rafy (m/s) Norm Rafy (m/s) Left Median Anti Sensory (2nd Digit) Wrist ? 3.7 4.4 <3.6 8.5 >10 Wrist 2nd Digit 3.7 14.0 38 Right Median Anti Sensory (2nd Digit) Wrist NR <3.6 >10 Wrist 2nd Digit 14.0 Right Radial Anti Sensory (Thumb) Forearm ? 1.5 2.1 <3.1 35.9 Forearm Thumb 1.5 0.0 Left Ulnar Anti Sensory (5th Digit) Wrist ? 2.3 2.8 <3.7 39.5 >15.0 Wrist 5th Digit 2.3 14.0 61 Right Ulnar Anti Sensory (5th Digit) Wrist ? 2.2 2.9 <3.7 32.4 >15.0 Wrist 5th Digit 2.2 14.0 64 Motor Summary Table ?Stim Site NR Onset (ms) Norm Onset (ms) O-P Amp (mV) Norm O-P Amp iAmp (mV) Amp (1st) (%) Site1 Site2 Delta-0 (ms) Dist (cm) Rafy (m/s) Norm Rafy (m/s) Left Median Motor (Abd Poll Brev) Wrist ? 4.4 <3.9 5.3 >4.5 6.1 100.0 Elbow Wrist 3.0 19.0 63 >45 Elbow ? 7.4 8.4 9.8 158.5 Right Median Motor (Abd Poll Brev) Wrist NR <3.9 >4.5 Elbow Wrist 0.0 >45 Elbow NR Left Ulnar Motor (Abd Dig Minimi) Wrist ? 2.6 <3.0 6.6 >5 8.1 100.0 B Elbow Wrist 2.6 16.0 62 >45 B Elbow ? 5.2 6.6 8.2 100.0 A Elbow B Elbow 1.4 10.0 71 >45 A Elbow ? 6.6 6.7 8.2 101.5 Right Ulnar Motor (Abd Dig Minimi) Wrist ? 2.5 <3.0 9.6 >5 11.8 100.0 B Elbow Wrist 2.8 16.0 57 >45 B Elbow ? 5.3 9.4 11.8 97.9 A Elbow B Elbow 1.3 10.0 77 >45 A Elbow ? 6.6 9.3 11.8 96.9 EMG ?Side Muscle Nerve Root Ins Act Fibs Psw Amp Dur Poly Recrt Int Pat Comment Right 1stDorInt Ulnar C8-T1 Nml Nml Nml Nml Nml 0 Nml Complete Right FlexCarRad Median C6-7 Nml Nml Nml Nml Nml 0 Nml Complete Right Biceps Musculocut C5-6 Nml Nml Nml Nml Nml 0 Nml Complete Right Triceps Radial C6-7-8 Nml Nml Nml Nml Nml 0 Nml Complete Right Deltoid Axillary C5-6 Nml Nml Nml Nml Nml 0 Nml Complete Left 1stDorInt Ulnar C8-T1 Nml Nml Nml Nml Nml 0 Nml Complete Left FlexCarRad Median C6-7 Nml Nml Nml Nml Nml 0 Nml Complete Left Biceps Musculocut C5-6 Nml Nml Nml Nml Nml 0 Nml Complete Left Triceps Radial C6-7-8 Nml Nml Nml Nml Nml 0 Nml Complete Left Deltoid Axillary C5-6 Nml Nml Nml Nml Nml 0 Nml Complete FINDINGS: Right median motor and sensory nerves showed no response. Left median motor nerve showed prolonged distal latency, normal amplitude and normal conduction velocity. Left median sensory nerve showed peak latency.prolonged and small amplitude. All other nerves tested were within normal. Concentric needle EMG was performed in selected muscles of the bilateral upper extremities. Study did not reveal signs of electric abnormalities as shown in the table above. IMPRESSION: 1. This is an abnormal study. 2. There is electrodiagnostic evidence for right severe and left moderate-severe median neuropathy at the wrist, consistent with carpal tunnel syndrome. 3. There is no electrodiagnostic evidence for ulnar neuropathy, brachial plexopathy, or cervical radiculopathy. Thank you for your kind referral. Vera Murrieta MD, YUMIKO Board Certified, [place] [employer] and Rehabilitation (ABPMR) Board Certified, [place] Board of Electrodiagnostic Medicine (ABEM) CODIN [phone] x 2 MTDD
== END 2023-12-01 14:48 | disposition home or self-care (01) ==
LOC: HO.NEURO 14:47
PROVIDERS: PCP Nurse Practitioner Primary Care
DX: R20.0 Anesthesia of skin (principal); R20.2 Paresthesia of skin
CPT/HCPCS: 95886; 95911

== ENCOUNTER → 2023-12-01 14:50 | Outpatient (BNV) | payer OTHER, SELFPAY | PROVIDERS: PCP Nurse Practitioner Primary Care; Visit Provider Physical Medicine & Rehabilitation | DX: G56.03 Carpal tunnel syndrome, bilateral upper limbs (principal) | CPT/HCPCS: 95886; 95911 ==

== ENCOUNTER 2023-12-21 10:32 | Outpatient (AMB) | payer OTHER, SELFPAY ==
--- NOTE | 2023-12-21 10:36 | MHC.OFFVIS ---
Vital Signs 12/21/23 10:38 Height 4 ft 10 in Weight 155 lb BMI 32.4 Handedness Right Intake Visit Reasons: OV EMG review right hand Intake Note: Louise is a 63 year old right hand dominant female who presents today for an EMG review of her bilateral hands, right worse than left. EMG was performed on 12/01/23. Impression reads there is electrodiagnostic evidence for right severe and left moderate-severe median neuropathy at the wrist, consistent with carpal tunnel syndrome. She would like to discuss surgical treatment today. She takes high cholesterol medication but is unaware of what the name is. Hx of DM, unknown last A1C Allergies No Known Allergies Allergy (Unverified 12/21/23 10:39) HPI HPI OV EMG review right hand: Details: Patient is a 63-year-old female who presents for EMG review for bilateral hand numbness and tingling. The patient reports that her symptoms have remained consistent since last evaluation, and are still constant, daily, and worse at night. The patient states that she finds the right side more bothersome, as this is her dominant hand, and would like to proceed with any potential indicated operative intervention on that side 1st. No other acute complaints or concerns at this time. [facility] Medical History GERD (gastroesophageal reflux disease) Nicotine dependence, cigarettes, uncomplicated Surgical History History of hysterectomy History of tonsillectomy Social History Patient Tobacco Use Status: Current everyday Tobacco user Years Smoked: (onset 17yo, 1/2ppd x 47yrs, now 1-2cig/day - 23pyh) Current occupational status: employed Current occupation: rt handed, [employer] Review of Systems Const All systems reviewed & are unremarkable except as noted in HPI and below Physical Exam Vital Signs: BMI result Body Mass Index 32.4 Extrem Other: Neuro: Decreased sensation in the median nerve distribution of the right hand. Normal sensation to all other digits in the right hand today. Diminished sensation in the tips of of the digits of the median nerve distribution of the left hand today. No thenar or intrinsic wasting. Diminished APB muscle firing on the right when compared to the left Good finger cross. Vascular: Capillary refill brisk. ROM: Patient can make a fist and extend all their digits. Skin: No lacerations or abrasions noted. General: No ecchymosis. No erythema or evidence of infection. There is visible and palpable locking and catching of the right middle finger, with no tenderness to palpation over the A1 justo. Results Reviewed Results Reviewed: IMPRESSION: 1. This is an abnormal study. 2. There is electrodiagnostic evidence for right severe and left moderate-severe median neuropathy at the wrist, consistent with carpal tunnel syndrome. 3. There is no electrodiagnostic evidence for ulnar neuropathy, brachial plexopathy, or cervical radiculopathy. Thank you for your kind referral. Vera Murrieta MD, YUMIKO 12/01/2023 Assessment & Plan Assessment & Plan (1) Carpal tunnel syndrome, bilateral: Code(s): G56.03 - Carpal tunnel syndrome, bilateral upper limbs Category: Medical Plan 1. Carpal tunnel syndrome, right Symptoms constant, daily, worse at night I educated the patient about the condition. I discussed both operative and nonoperative treatment options. The patient would like to proceed with surgery. The risks and benefits of operative treatment were discussed with the patient and the patient wishes to proceed with surgery. These risks include, but are not limited to, risk of damage to blood vessels, nerves, tendons, infection, recurrence, incomplete relief of preoperative symptoms, persistent pain, possible need for further surgery, and the risks associated with regional blocks and/or anesthesia. Plan is to take the patient to the operating room at some point in the next few weeks for the following procedures: 1. Right carpal tunnel release under local anesthesia All of the preoperative paperwork including the consent was discussed today. All of the patient's questions were answered in the clinic today. The patient understands that they will be in contact with our assistant professor surgical technology to discuss scheduling their procedure. Patient reports diabetes, last A1c 6.7 Patient reports smoking 1-2 cigarettes per day, but states that she can discontinue without difficulty prior to and after surgery Denies blood thinners, asthma, heart issues, lung issues, kidney issues 2. Carpal tunnel syndrome, left Symptoms constant, daily, worse at night Patient would like to proceed with operative intervention on the right prior to intervention of the left Patient is advised that if she is recovering well from the right side and surgery, we can get her signed up for a left carpal tunnel release at that time Patient understands this and is amenable to this plan Coding Level of Care Code Est Pt Level 4 (93656) Diagnoses Carpal tunnel syndrome, bilateral G56.03
[2023-12-21 10:38] VITALS: BMI 32.4
== END 2023-12-21 11:02 | disposition home or self-care (01) ==
LOC: HO.HOS 10:32
PROVIDERS: PCP Nurse Practitioner Primary Care
DX: G56.03 Carpal tunnel syndrome, bilateral upper limbs (principal)
CPT/HCPCS: 99214

== ENCOUNTER → 2023-12-21 10:32 | Outpatient (BNVA) | payer OTHER, SELFPAY | PROVIDERS: PCP Nurse Practitioner Primary Care ==

== ENCOUNTER 2024-02-16 15:42 | Outpatient (REF) | payer OTHER, SELFPAY ==
[2024-02-16 17:19] LABS: TSH reflex Free T4 1.21 uIU/mL (0.32-4.0)
[2024-02-17 09:38] LABS: Triiodothyronine T3 Total 98 ng/dL (76-181)
== END 2024-02-16 15:43 | disposition home or self-care (01) ==
LOC: HO.LAB 15:42
PROVIDERS: PCP Nurse Practitioner Primary Care; Visit Provider Nurse Practitioner Primary Care
DX: E04.1 Nontoxic single thyroid nodule (principal)
CPT/HCPCS: 36415; 84443; 84480

== ENCOUNTER 2024-02-27 08:03 | Day surgery (SDC) | payer OTHER, SELFPAY ==
[2024-02-27 08:58] VITALS: BP 132/61; PULSE 71; RESP 14; TEMP 36.6; O2SAT 96; BMI 32.4
--- NOTE | 2024-02-27 09:32 | MHC.SHP ---
Pre-Procedural Eval Section A - 24 Hr Update-Section A only Date of Service: 02/27/24 The patient is an INPATIENT: No Changes since office visit: No Cold of Flu in the past 2 weeks, No New Medical Problems, No Changes in Medication and No Patient answered all questions The patient has been examined within 24 hours of the surgical procedure. The History & Physical has been completed within 30 days and I have reviewed it.: Yes Section B - Complete if H&P > 30 days Chief Complaint: Carpal tunnel syndrome, right upper limb Allergies: Allergies Allergy/AdvReac Type Severity Reaction Status Date / Time No Known Allergies Allergy Verified 02/27/24 08:45 Plan Diagnosis/Plan: Unchanged I have reviewed the history and physical and performed a pertinent physical examination on my patient. No changes have occurred unless specified. Time Spent With Patient Time: Total time managing care of this patient today ____ minutes.
--- NOTE | 2024-02-27 09:33 | W.PM.OPN ---
Operative Note Operative Note Date of Service: 02/27/24 Narrative: Preop diagnosis: 1. Right Carpal tunnel syndrome Postop diagnosis: same Procedure: 1. Right Carpal tunnel release Surgeon: Britney Storm MD [employer] Planner: None Anesthesia: local block using 1% lidocaine with epinephrine Findings: Thickened transverse carpal ligament. EBL: Less than 5 mL Specimens: None Complications: None Disposition: Brought to recovery room in stable condition Plan: Follow-up for 10-14 days for wound check and suture removal Indications: The patient is 63 years old, with right carpal tunnel syndrome that has been unresponsive to nonoperative management. The risks and benefits of operative treatment including but not limited to risk of damage to blood vessels, nerves, tendons, infection, persistent pain, persistent symptoms, or possible need for additional surgery were discussed with the patient and the patient wishes to proceed with surgery. Procedure: Once consent was obtained a local block was performed using a combination of 1% lidocaine with epinephrine. The patient was then brought back to the operating suite and placed on the operative table in supine position. The right upper extremity was prepped and draped in a standard surgical fashion. Once assured that we had a good block, a 2.0 cm longitudinal incision was made centered over the carpal tunnel. The incision was made through the skin to the subcutaneous tissues using a #15 blade. Dissection was made down to the level of the transverse carpal ligament with care being taken to protect the palmar cutaneous nerve. Once the transverse carpal ligament was clearly visualized, a longitudinal incision was made in the transverse carpal ligament 1st using a #15 blade, then using tenotomy scissors under direct visualization. Care was taken to look for and protect the motor branch of the median nerve when seen in this area. Once satisfied with our carpal tunnel release the wound was copiously irrigated with normal saline and hemostasis was obtained with a brief period of local pressure. The skin edges were reapproximated with some 5.0 nylon suture material and a sterile dressing was applied. The patient appears to have tolerated the procedure well and with no complications. All digits were well vascularized at the conclusion of the case.
[2024-02-27 10:02] VITALS: BP 138/57; PULSE 65; RESP 16
== END 2024-02-27 10:11 | disposition home or self-care (01) ==
PROVIDERS: PCP Nurse Practitioner Primary Care; Visit Provider Orthopaedic Surgery
PROC: (CPT 64721; principal; 2024-02-27 09:10)
DX: G56.01 Carpal tunnel syndrome, right upper limb (principal); R20.0 Anesthesia of skin; R20.2 Paresthesia of skin; E78.00 Pure hypercholesterolemia, unspecified; K21.9 Gastro-esophageal reflux disease without esophagitis; Z79.899 Other long term (current) drug therapy; Z98.890 Other specified postprocedural states; F17.210 Nicotine dependence, cigarettes, uncomplicated
CPT/HCPCS: 64721; J0171; J2003

== ENCOUNTER → 2024-02-27 08:03 | Outpatient (BNV) | payer OTHER, SELFPAY | PROVIDERS: PCP Nurse Practitioner Primary Care; Visit Provider Orthopaedic Surgery | DX: G56.01 Carpal tunnel syndrome, right upper limb (principal) | CPT/HCPCS: 64721 ==

== ENCOUNTER 2024-03-07 13:16 | Outpatient (AMB) | payer OTHER, SELFPAY ==
--- NOTE | 2024-03-07 13:24 | A.OFFVIS_ITS ---
Vital Signs 03/07/24 13:25 Height 4 ft 10 in Weight 156 lb 8.451 oz BMI 32.7 BP 123/58 L Blood Pressure Location Lt brachial Position Sitting Intake Visit Reasons: Gastroesophageal reflux disease (GERD) Intake Note: Louise presents in the office as a new patient for GERD. CC: She states that she still gets reflux - complains of pains in the epigastric region and denies diarrhea but states she suffers from constipation. 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 Reports progressively getting worse sonny since the last 6 months. Had a near food obstruction instance yesterday. Has not needed to go to the hospital. Notices it more with liquids. Has never had any endoscopy. Has also not had any CRC screening including stool based. Smokes 1-2 cigs/day. No fam hx of esophageal ca, colon ca. No rectal bleeding. No unintentional weight loss. PFSH Medical History Numbness and tingling in both hands GERD (gastroesophageal reflux disease) Nicotine dependence, cigarettes, uncomplicated Surgical History H/O cystoscopy H/O cystocele repair History of hysterectomy History of tonsillectomy Social History Are you a primary laboratory animal caretaker to a significant other at home: No Do you presently have visiting nurse or other home services: No Patient Tobacco Use Status: Current everyday Tobacco user Tobacco use type: Cigarette Cigarettes Per Day: 2 Years Smoked: (onset 17yo, 1/2ppd x 46yrs, now 1-2cig/day - 23pyh) Current occupational status: employed 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 Mild cricopharyngeal achalasia. 2. Tiny type I hiatal hernia with mild gastroesophageal reflux. 3. Multiple tiny foci of contrast pooling in the fundus of the stomach that may present small superficial aphthous ulcers. Findings suggest gastritis. Recommend correlation with EGD. Assessment & Plan Assessment & Plan (1) GERD (gastroesophageal reflux disease): Code(s): K21.9 - Gastro-esophageal reflux disease without esophagitis Category: Medical (2) Gastritis: Code(s): K29.70 - Gastritis, unspecified, without bleeding Category: Medical (3) Dysphagia: Code(s): R13.10 - Dysphagia, unspecified Category: Medical (4) Colon cancer screening: Code(s): Z12.11 - Encounter for screening for malignant neoplasm of colon Category: Medical Plan 1. GERD, dysphagia Barium swallow reviewed. Has evidence of HH with reflux and gastrtis. Also likely has cricopharyngeal narrowing causing intermittent dysphagia. plan: - Start omeprazole 20 once daily for gerd and gastritis - to be cont'd for 8-12 weeks only. - Avoid NSAIDs and smoking - EGD with possible dilation to be booked 2. CRC screening Pt also overdue for screening. Reviewed both stool based testing and colo. Main barrier to colo is prep due to taste, but pt agreeable to miralax/gatorade prep. Plan: - [place] to be booked with egd - miralax/gatorade prep Rxed - instructions reviewed and handout given Follow up after scopes Medications: New polyethylene glycol 3350 (Miralax) for colonoscopy prep - mix in 64oz of gatorade 238 grams PO ONCE 238 grams 0RF omeprazole 20 mg PO DAILY 90 caps 0RF Coding Level of Care Code New Pt Level 4 (48445) Diagnoses GERD (gastroesophageal reflux disease) K21.9 Gastritis K29.70 Dysphagia R13.10 Colon cancer screening Z12.11
[2024-03-07 13:25] VITALS: BP 123/58; BMI 32.7
== END 2024-03-07 13:46 | disposition home or self-care (01) ==
PROVIDERS: PCP Nurse Practitioner Primary Care; Visit Provider Internal Medicine
DX: K21.9 Gastro-esophageal reflux disease without esophagitis (principal); K29.70 Gastritis, unspecified, without bleeding; R13.10 Dysphagia, unspecified; Z12.11 Encounter for screening for malignant neoplasm of colon
CPT/HCPCS: 99204

== ENCOUNTER → 2024-03-07 13:16 | Outpatient (BNVA) | payer OTHER, SELFPAY | PROVIDERS: PCP Nurse Practitioner Primary Care; Visit Provider Internal Medicine ==

== ENCOUNTER 2024-03-13 13:31 | Outpatient (AMB) | payer OTHER, SELFPAY ==
--- NOTE | 2024-03-13 13:43 | A.OFFVIS_ITS ---
Intake Visit Reasons: PO RT CTR 02/27/24 AR Intake Note: Louise is a 63 year old female who presents today for a post operative RT CTR, DOS 02/27/24 AR. Patient reports she is doing well, her numbness and tingling has improved since her surgery. Allergies No Known Allergies Allergy (Verified 03/13/24 13:49) HPI HPI PO RT CTR 02/27/24 AR: Details: Louise is a 63 year old female who presents today for a post operative RT CTR, DOS 02/27/24 AR. Patient reports she is doing well, her numbness and tingling has improved since her surgery. Sutures removed, strips applied PFSH Medical History Numbness and tingling in both hands GERD (gastroesophageal reflux disease) Nicotine dependence, cigarettes, uncomplicated Surgical History H/O cystoscopy H/O cystocele repair History of hysterectomy History of tonsillectomy Social History Are you a primary clinical care coordinator to a significant other at home: No Do you presently have visiting nurse or other home services: No Patient Tobacco Use Status: Current everyday Tobacco user Tobacco use type: Cigarette Cigarettes Per Day: 2 Years Smoked: (onset 17yo, 1/2ppd x 46yrs, now 1-2cig/day - 23pyh) Current occupational status: employed 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 Diminished APB muscle firing on the right when compared to the left Good finger cross. Vascular: Capillary refill brisk. ROM: Patient can make a fist and extend all their digits. Skin: No lacerations or abrasions noted. General: No ecchymosis. No erythema or evidence of infection. There is visible and palpable locking and catching of the right middle finger, with no tenderness to palpation over the A1 justo. Assessment & Plan Assessment & Plan (1) Carpal tunnel syndrome, bilateral: Code(s): G56.03 - Carpal tunnel syndrome, bilateral upper limbs Category: Medical Plan 1. Carpal tunnel syndrome, right, status post carpal tunnel release Symptoms improving, daily, worse at night Patient appears to be recovering well postoperatively Patient is educated about the typical Recovery course Sutures removed today Patient is educated she will not require an acute follow-up with us, as she is recovering very well Patient was amenable to this plan 2. Carpal tunnel syndrome, left Symptoms constant, daily, worse at night Patient would like to wait a few months for operative intervention on the left because she feels she needs more time prior To another surgery Patient was advised that she should call us for discussion of left carpal tunnel release when she is ready Patient was amenable to this plan Coding Level of Care Code Global (42963) Diagnoses Carpal tunnel syndrome, bilateral G56.03
== END 2024-03-13 14:00 | disposition home or self-care (01) ==
PROVIDERS: PCP Nurse Practitioner Primary Care
DX: G56.03 Carpal tunnel syndrome, bilateral upper limbs (principal)
CPT/HCPCS: 99024

== ENCOUNTER → 2024-03-13 13:31 | Outpatient (BNVA) | payer OTHER, SELFPAY | PROVIDERS: PCP Nurse Practitioner Primary Care ==

== ENCOUNTER → 2024-03-27 11:35 | Outpatient (BNV) | payer OTHER, SELFPAY | PROVIDERS: Visit Provider Radiology Diagnostic Radiology | DX: R05.9 Cough, unspecified (principal); M77.51 Other enthesopathy of right foot and ankle | CPT/HCPCS: 71046; 73630 ==

== ENCOUNTER 2024-03-27 11:54 | Outpatient (REF) | payer OTHER, SELFPAY ==
[2024-03-27 13:19] LABS: MANUAL DIFF FLAG NO
[2024-03-27 13:31] LABS: Basophils Percent Auto 0.3 % (0-2); Eosinophils Absolute Auto 0.2 X10*3/uL (0.0-0.4); Eosinophils Percent Auto 1.7 % (0-4); Hematocrit 40.6 % (37.0-47.0); Hemoglobin 13.5 g/dl (12.0-16.0); Imm Gran Abs Auto 0.05 X10*3/uL (0.00-0.03); Imm Gran Pct Auto 0.4 % (0.0-0.4); Lymphocytes Absolute Auto 2.2 X10*3/uL (1.2-4.9); Lymphocytes Percent Auto 18.9 % (20-40); Mean Corpuscular HGB Conc 33.3 g/dl (31.0-35.0); Mean Corpuscular Hemoglobin 28.9 pg (27.0-33.0); Mean Corpuscular Volume 86.9 fL (80.0-98.0); Mean Platelet Volume 10.4 fL (9.4-12.3); Monocytes Absolute Auto 1.2 X10*3/uL (0.1-1.2); Monocytes Percent Auto 9.9 % (2-11); Neutrophils Percent Auto 68.8 % (45-73); Platelet Count 393 X10*3/uL (160-400); Red Blood Count 4.67 X10*6/uL (4.20-5.50); Red Cell Distribution Width 12.3 % (11.0-16.0); White Blood Count 11.7 X10*3/uL (4.8-10.8)
[2024-03-27 13:55] LABS: Uric Acid 3.2 mg/dL (2.4-5.7)
== END 2024-03-27 11:55 | disposition home or self-care (01) ==
LOC: HO.HHCL 11:54
PROVIDERS: Visit Provider Internal Medicine
DX: M79.671 Pain in right foot (principal)
CPT/HCPCS: 36415; 84550; 85025

== ENCOUNTER 2024-06-06 08:19 | Outpatient (REF) | payer OTHER, SELFPAY ==
--- NOTE | ~2024-06-06 | MM_ITS ---
EXAMINATION: DXA BONE DENSITY AXIAL HISTORY: osteopenia TECHNIQUE: Globant Dual energy absorptiometry (DEXA) of the lumbar spine, total left hip, and femoral neck was performed. COMPARISON: Comparison is made with the prior examination dated 01/28/2022. FINDINGS: The bone mineral density of the lumbar spine is 0.967 with a T-score of -1.8, and a Z-score of -0.5. This is indicative of osteopenia. This represents a BMD change of -0.4% compared to the prior exam. This is not statistically significant. The bone mineral density of the left total hip is 0.923 with a T-score of -0.7, and a Z-score of 0.3. This is indicative of normal bone mineral density. This represents a BMD change of -1.2% compared to the prior exam. This is not statistically significant. The bone mineral density of the left femoral neck is 0.649 with a T-score of -2.8, and a Z-score of -1.6. This is indicative of osteoporosis. This represents a BMD change of -7.8% compared to the prior exam. MM/XR DEXA axial skeleton IMPRESSION: Based on bone mineral density, and according to World Health Organization (WHO) criteria, the diagnosis is consistent with osteoporosis. All bone density values are in grams per centimeter squared (g/cm2). Statistically, 68% of repeat scans fall within 1 SD (+/- 0.010 g/cm2 for AP spine L1-L4) and 1 SD (+/- 0.012 g/cm2 for femur total) FRAX is a trademark of the [employer] [place] for Metabolic Bone Disease, a World Health Organization (WHO) Collaborating Center. Electronically signed by: Amadou Hsu MD 06/06/2024 09:58 AM EDT
--- OUTSIDE RECORDS SUMMARY | 2024-06-06 08:29 | XMS_ITS | Clinical Summary ---
Author Organization [employer] Address [address] [place] [address] Care Team Providers Care Blow Off Worker Name Role Phone Lanny Strong WONG Primary Care Provider [phone] Allergies No known active allergies Medications azithromycin (Zithromax Z-Chavez) 250 MG tabletIndication s:Cough, unspecified type Take 2 tabs po x 1 day then 1 tab po daily x 4 days 6 tablet 025 Active naproxen (Naprosyn) 500 MG tabletIndication s:Right foot pain Take 1 tablet (500 mg) by mouth if needed in the morning and at bedtime for mild pain or moderate pain. 30 tablet 025 Active Blood Glucose Monitoring Suppl (FreeStyle Lite) w/Device kitIndications:N ew onset type 2 diabetes mellitus (CMS/HCC) 1 Device Once per day. 1 kit 025 Active FREESTYLE LITE test stripIndications :New onset type 2 diabetes mellitus (CMS/HCC) Take twice daily 100 each 12 025 2025 Active omeprazole (PriLOSEC) [address] Pablo ns:Gastroesophag eal reflux disease, unspecified whether esophagitis present Take 1 capsule (20 mg) by mouth before breakfast. Do not crush or chew. 90 capsule 1 025 Active metFORMIN XR (Glucophage-XR) 500 MG 24 hr tabletIndication s:New onset type 2 diabetes mellitus (CMS/HCC) Take 1 tab once daily with food 90 tablet 1 025 Active atorvastatin (Lipitor) 10 MG tabletIndication s:Type 2 diabetes mellitus with hyperlipidemia (CMS/HCC) (CMS/HCC) Take 1 tablet (10 mg) by mouth at bedtime. 90 tablet 3 025 2025 Active estradiol (Estrace) 0.1 MG/GM vaginal creamIndications :Vaginal atrophy 2g once daily for 1 week, then twice weekly intravaginally 42.5 g 5 025 Active atorvastatin (Lipitor) 10 MG tabletIndication s:New onset type 2 diabetes mellitus (CMS/HCC) Take 1 tablet (10 mg) by mouth at bedtime. 90 tablet 1 024 2024 Discontinued(R eorder (will not trigger notification to Pharmacy)) cholecalciferol (Vitamin D-3) 25 MCG (1000 UT) capsuleIndicatio ns:New onset type 2 diabetes mellitus (CMS/HCC) Take 1 capsule (25 mcg) by mouth Once per day. 90 capsule 1 024 2024 Active Problems Problem Noted Date Diagnosed Date Right foot pain 03/27/2024 Assessment & Plan (03/27/2024 12:47 PM EST): Patient with c/o new onset of right ankle/foot pain x 5 days in the absence of any injury. Associated with swelling, tenderness and decreased ROM Exam shows swelling of the ankle, decrease ROM due to pain, tenderness to palpation. Etiology ? Highly suggestive of acute gouty attack. But other etiologies will need to be considered , doubt infection Plan: Plain x-ray, CBC, Uric Acid, Ortho referral. Start Prednisone taper, given duration colchicine less effective. NSAIDS Instructed patient to come back if symptoms do not improve or worsen within then next 48-72 hrs. Acute cough 03/27/2024 Assessment & Plan (03/27/2024 12:50 PM EST): Pt with c/o cough productive of yellow phlegm. In the setting of active tobacco use Neg Flu, covid and Strep Symptoms and exam indicative of an acute bronchitis, given underlying Dm and tobacco use will treat with: Z-pack, supportive measures. Chest x-ray Discussed with pt to call or come back if symptoms do not improve or worsen Hiatal hernia with GERD 11/22/2023 Cricopharyngeal achalasia 11/22/2023 CTS (carpal tunnel syndrome) 09/12/2023 GERD (gastroesophageal reflux disease) Obesity 09/12/2023 Type 2 diabetes mellitus with hyperlipidemia (CM S/HCC) 09/12/2023 Overview (05/11/2024): Lab Results Component Value Date HGBA1C 6.9 (A) 05/11/2024 HGBA1C 7.0 (A) 03/27/2024 HGBA1C 6.7 (H) 09/27/2023 A1c in DM range 09/27/23 Tolerating metformin 500mg XR well, declines to increase dose Assessment & Plan (03/27/2024 12:52 PM EST): Pt apparently non compliant with Metformin. A1c today 7.0 Glucometer, testing supplies sent. Discussed with her need to be compliant with medical treatment and also discussed chances that her BG will increase as a result of the short Prednisone taper. 4 weeks follow up with PCP to focus on her DM Tobacco use 09/12/2023 Uterovaginal prolapse, incomplete 09/12/2023 Overview (05/11/2024): s/p 08/26/22 transvaginal hysterectomy with morcellation, robotic assisted laparoscopic sacrocolpoplexy, cystocele repair, posterior colporrhaphy, cystoscopy Osteopenia after menopause 09/12/2023 Overview (09/12/2023): DEXA 01/28/2022 FINDINGS: AP SPINE L1-L4: BMD 0.971 g/cm2, Z-score -0.7, T-score -1.7, osteopenia. LEFT FEMUR, NECK: BMD 0.704 g/cm2, Z-score -1.3, T-score -2.4, osteopenia. LEFT FEMUR, TOTAL: BMD 0.934 g/cm2, Z-score 0.2, T-score -0.6, normal. IDENTIFIED RISK FACTORS: Menopause, tobacco use (current smoker). HISTORY OF FRACTURE: None listed. MEDICATIONS: None listed. MM/XR DEXA axial skeleton IMPRESSION: 1. DIAGNOSIS: Osteopenia based on the lowest T-score value of -2.4 in the femoral neck applying World Health Organization criteria. 2. 10-YEAR FRACTURE RISK PREDICTION, FRAX: Major osteoporotic fracture (clinical spine, forearm, hip or shoulder) 6.4%. Hip fracture 1.7% Status post hysterectomy 09/12/2023 Overview (09/12/2023): Surgical procedure 08/26/22 transvaginal hysterectomy, laparoscopic sacrocolpoplexy, cystocele repair, posterior colporrhaphy, cystoscopy Encounters Date Type Department Care Team Description 05/31/[address] [address] Lanny Strong ANP August05/14/[address] [address] Lanny Strong ANP Appointment Request 05/11/2024 2:30 PM EDT Office Visit [address] [address] Lanny Strong ANP New onset type 2 diabetes mellitus (CMS/HCC) (Primary Dx); Type 2 diabetes mellitus with hyperlipidemia (CMS/HCC) (CMS/HCC); Osteopenia after menopause; Status post hysterectomy; Vaginal atrophy; Uterovaginal prolapse, incomplete 05/11/2024 Travel 03/27/2024 11:30 AM EST Office Visit [address] [address] Shlomo Aburto MD Right foot pain (Primary Dx); Cough, unspecified type; New onset type 2 diabetes mellitus (CMS/HCC); Gastroesophageal reflux disease, unspecified whether esophagitis present; Acute cough 03/27/2024 Travel from Last 3 Months Social History Tobacco Use Types Packs/Day Years Used Date Smoking Tobacco: Some Days Cigarettes Smokeless Tobacco: Never Tobacco Cessation:Ready to Q uit: Not Asked; Counseling Given: Not Answered Alcohol Use Standard Drinks/Week Comments Yes 0 (1 standard drink = 0.6 oz pur e alcohol) weekends Housing Stability Answer Date Recorded What is your housing situation today? I have elijah kong 09/12/[address] you li ve. Do you have problems with any of the following? None of the above 09/12/2023 Food Insecurity Answer Date Recorded Within the past 12 months, y ou worried that your food would run out before you got money to buy more: Never True 09/12/2023 Within the past 12 months,th e food you bought just didn't last and you didn't have enough money to get more: Never True Transportation Answer Date Recorded In the past 12 months, has l ack of transportation kept you from medical appts, meetings, work or from getting things needed for daily living? No 09/12/2023 Utilities Answer Date Recorded In the past 12 months, has t he electric, gas, oil or water company threatened to shut off services in your home? No 09/12/2023 Depression Answer Date Recorded Patient Health Questionnaire-2 Score 0 09/12/2023 Internet Access Answer Date Recorded Internet Access Q1 No 10/22/2023 Internet Access Q2 I do not want or need it 09/23 Comments Unknown Sex and Gender Information Value Date Recorded Sex Assigned at Female 01/13/2022 11:55 AM EST Legal Sex Female 11:50 AM EST Gender Identity Female 01/13/2022 11:55 AM EST Sexual Orientation Straight 01/13/2022 11 :55 AM EST Last Filed Vital Signs Vital Sign Reading Time Taken Comments Blood Pressure 130/74 05/11/2024 2:47 PM EDT Pulse 86 05/11/2024 2:47 PM EDT Temperature 36.5 ??C (97.7 ??F) 05/11/2024 2:47 PM ED T Respiratory Rate 14 05/11/2024 2:47 PM EDT Oxygen Saturation 98% 05/11/2024 2:47 PM EDT Inhaled Oxygen Concentration - - Weight 70.9 kg (156 lb 6.4 oz) 05/11/2024 2:47 P M EDT Height 149.9 cm (4' 11 ) 05/11/2024 2:47 PM EDT Body Mass Index 31.59 05/11/2024 2:47 PM EDT Plan of Treatment Upcoming Encounters Date Type Department Care Team (Late st Contact Info) Description 09/14/2024 2:15 PM EDT Office Visit [facility] [address] [place] [address] Lanny Strong ANP [address] [place] [address] Health Maintenance Due Date Last Done Comments CT Colonography 1960 Colonoscopy 1960 Colorectal Cancer Screening 1960 FIT DNA/Cologuard 1961 FIT 1960 FOBT 1960 HIV Screening 1960 Sigmoidoscopy 1960 Hepatitis C Screening 05/30/1979 Diabetes: Urine Protein Screening 1980 Pneumococcal Vaccine: 50+ Years (1 of 2 - PCV) 1980 Pap Smear 1982 HPV/Cotest 05/30/1991 Zoster Vaccines (1 of 2) 05/30/2011 Depression Screening 09/11/2024 09/12/2023, 09/12/19 24 SDOH Screening 09/11/2024 09/12/2023 Lipid Panel 09/26/2024 09/27/2023 Diabetes: Hemoglobin A1C 11/11/2024 025, 03/27/2024, 09/27/2023 Diabetes: Foot Exam 03/27/2025 03/27/2024 Alcohol/Substance Use Screening 05/11/2025 05/11/2024 Tobacco Screening 05/11/2025 05/11/2024 Mammogram 09/26/2025 09/27/2023, 09/27/2023 Eye Exam 01/05/2026 01/06/2024, 11/22, 12/12/2023, Additional history exists DTaP/Tdap/Td Vaccines (2 - Td or Tdap) 05/21/2027 05/20/2017 RSV Patients and Patients Aged 60 years or older (1 - 1-dose 75+ series) 2036 Influenza Vaccine Completed 11/24/2023, 12/06/2019 COVID-19 Vaccine Completed 01/09/2024, , 06/19/2020, Additional history exists Cervical Cancer Screening Discontinued HIB Vaccines Aged Out No longer eligi ble based on patient's age to complete this topic HPV Vaccines Aged Out No longer eligi ble based on patient's age to complete this topic Hepatitis A Vaccines Aged Out No long er eligible based on patient's age to complete this topic Hepatitis B Vaccines Aged Out No long er eligible based on patient's age to complete this topic IPV Vaccines Aged Out No longer eligi ble based on patient's age to complete this topic Meningococcal Vaccine Aged Out No jai néstor eligible based on patient's age to complete this topic RSV under 20 months Aged Out No longe r eligible based on patient's age to complete this topic Rotavirus Vaccines Aged Out No longer eligible based on patient's age to complete this topic Procedures Procedure Name Priority Date/Time Associated Diagnosis Comments POCT GLYCATED HEMOGLOBIN, TOTAL Routine 05/11/2024 2:51 PM EDT New onset type 2 diabetes mellitus (CMS/HCC) CBC WITH AUTO DIFFERENTIAL Routine 03/27/2024 11:56 AM EST Right foot pain URIC ACID Routine 03/27/2024 11:56 AM EST Right foot pain XR FOOT 3+ VIEWS RIGHT Routine 11:35 AM EST Right foot pain XR CHEST 2 VIEWS Routine 03/27/2024 11:3 5 AM EST Cough, unspecified type POCT GLYCATED HEMOGLOBIN, TOTAL Routine 03/27/2024 11:23 AM EST New onset type 2 diabetes mellitus (CMS/HCC) POCT INFLUENZA B (ID NOW RAPID MOLECULAR) Routine 03/27/2024 11:15 AM EST Cough, unspecified type POCT INFLUENZA A (ID NOW RAPID MOLECULAR) Routine 03/27/2024 11:15 AM EST Cough, unspecified type POC VENTURA ID NOW STREP A Routine 03/27/2024 11:02 AM EST Cough, unspecified type POCT RAPID COVID ANTIGEN Routine 03/27/2024 10:58 AM EST Cough, unspecified type AMB REFERRAL TO OPHTHALMOLOGY Routine 01/06/2024 Anatomical narrow angle of both eyes BI MAMMOGRAM SCREENING TOMOSYNTHESIS BILATERAL Routine 09/27/2023 3:55 PM EDT LIPID PANEL, STANDARD Routine 09/27/2023 10:14 AM EDT Prediabetes Dyslipidemia from Last 3 Months or Most Recently Relevant to Health Maintenance Results * (ABNORMAL) POCT HGB A1C (05/11/2024 2:51 PM EDT) Only the most recent of2 resultswithin the time period is included. Pathologist [facility] Hemoglobin A1C 6.9(A) 4.0 - 6.0 % QC Media Lot # [id number] Lot# Expiration Date ,403 Blood 05/11/2024 2:51 PM EDT Lanny BACK POINT OF CARE TEST ENTER/EDIT OR DERABLES Final Result * (ABNORMAL) CBC auto differential (03/27/2024 11:56 AM EST) Pathologist [facility] White Blood Count 11.7(H) 4.8 - 10.8 X10*3/uL [facility] Red Blood Count 4.67 4.20 - 5.50 X10*6/uL [facility] Hemoglobin 13.5 12.0 - 16.0 g/dl [facility] Hematocrit 40.6 37.0 - 47.0 % [facility] Mean Corpuscular Volume 86.9 80.0 - 98.0 fL [facility] Mean Corpuscular Hemoglobin 28.9 27.0 - 33.0 pg [facility] Mean Corpuscular HGB Conc 33.3 31.0 - 35.0 g/dl [facility] Red Cell Distribution Width 12.3 11.0 - 16.0 % [facility] Platelet Count 393 160 - 400 X10*3/uL [facility] Mean Platelet Volume 10.4 9.4 - 12.3 fL [facility] Neutrophils Percent Auto 68.8 45 - 73 % [facility] Imm Gran Pct Auto 0.4 0.0 - 0.4 % [facility] Lymphocytes Percent Auto 18.9(L) 20 - 40 % [facility] Monocytes Percent Auto 9.9 2 - 11 % [facility] Eosinophils Percent Auto 1.7 0 - 4 % [facility] Basophils Percent Auto 0.3 0 - 2 % [facility] NRBC Pct Auto 0.0 0.0 - 0.2 /100WBC [facility] Neutrophils Absolute Auto 8.0 2.0 - 8.3 x10*3/uL [facility] Imm Gran Abs Auto 0.05(H) 0.00 - 0.03 X10*3/uL [facility] Lymphocytes Absolute Auto 2.2 1.2 - 4.9 X10*3/uL [facility] Monocytes Absolute Auto 1.2 0.1 - 1.2 X10*3/uL [facility] Eosinophils Absolute Auto 0.2 0.0 - 0.4 X10*3/uL [facility] Basophils Absolute Auto 0.0 0.0 - 0.2 X10*3/uL [facility] NRBC Abs Auto 0.000 0.0 - 0.012 X10*3/uL [facility] Blood Venous blood specimen / Unknown 03/27/2024 11:56 AM EST 03/27/2024 1:11 PM EST Shlomo Salcedo MD LAB BLOOD ORDERABLES Final Result [facility] [address], [place] [phone] * Uric acid (03/27/2024 11:56 AM EST) Uric Acid 3.2 2.4 - 5.7 mg/dL [facility] Blood Venous blood specimen / Unknown 03/27/2024 11:56 AM EST 03/27/2024 1:11 PM EST Sholmo Salcedo MD LAB BLOOD ORDERABLES Final Result [facility] [address] [place] [address] [phone] * XR Foot 3+ Views Right (03/27/2024 11:35 AM EST) Anatomical Region Laterality Modality Lower Extremities, Foot Right Radiogra phic Imaging 03/27/2024 11:3 5 AM EST Narrative 03/27/2024 12:07 PM EST ?[facility] ?[address] ?[place] [address] ?XRay Report ? Signed ? Patient: Musa,Louise I ?MR#: [id number] ?? 1296 ? : 1960 ?Acct:[id number] ? Age/Sex: 63 / F ?ADM Date: 03/27/24 ? Loc: HO.HHCX ? Attending Dr: Shlomo Rooney MD ? Ordering Physician: Shlomo Rooney MD ?? Date of Service: 03/27/24 ?? Procedure(s): XR foot RT min 3V ?? Accession Number(s): [id number] ? cc: Shlomo Rooney MD ? EXAMINATION: ?? XR FOOT, RIGHT ? CLINICAL INFORMATION: ?? right foot pain ? COMPARISON: ?? 01/31/2017. ? TECHNIQUE: ?? AP, lateral, and oblique views of the right foot. ? FINDINGS: ?? No fracture, dislocation, or suspicious bone lesion. No focal region of ?? osteopenia or permeative bony change. ?? Normal alignment. Normal plantar arch. ?? Moderate sized enthesophyte of the distal Achilles tendon at the ?? insertion, with mild overlying soft tissue prominence. ? Soft tissues demonstrate mild subcutaneous edema diffusely. ? XR/XR foot RT min 3V ?? IMPRESSION: ?? 1. No acute bony abnormalities. ?? 2. Achilles enthesopathy. ?? 3. Mild diffuse soft tissue swelling. ? Electronically signed by: ??Wicho Rangel MD ??03/27/2024 12:05 PM EST RP ? Dictated By: ?Wicho Rangel MD ? Signed By: ?<Electronically signed by Wicho Rangel MD in OV> ?03/27/24 1205 ? DD/ 1135 ? TD/TT: 03/27/24 1153 ? Supervisor Rough End: ? Procedure Note Donotuseinterpreter, Image - 03/27/2024 [facility] [address] [place] [address] XRay Report Signed Patient: Louise Vigil IMR#: [id number] 1296 : 2Acct:[id number] Age/Sex: 63 / FADM Date: 03/27/24 Loc: HO.HHCX Attending Dr: Shlomo Rooney MD Ordering Physician: Shlomo Rooney MD Date of Service: 03/27/24 Procedure(s): XR foot RT min 3V Accession Number(s): [id number] cc: Shlomo Rooney MD EXAMINATION: XR FOOT, RIGHT CLINICAL INFORMATION: right foot pain COMPARISON: 01/31/2017. TECHNIQUE: AP, lateral, and oblique views of the right foot. FINDINGS: No fracture, dislocation, or suspicious bone lesion. No focal region of osteopenia or permeative bony change. Normal alignment. Normal plantar arch. Moderate sized enthesophyte of the distal Achilles tendon at the insertion, with mild overlying soft tissue prominence. Soft tissues demonstrate mild subcutaneous edema diffusely. XR/XR foot RT min 3V IMPRESSION: 1. No acute bony abnormalities. 2. Achilles enthesopathy. 3. Mild diffuse soft tissue swelling. Electronically signed by: Wicho Rangel MD 03/27/2024 12:05 PM EST Dictated By: Wicho Rangel MD Signed By: <Electronically signed by Wicho Rangel MD in OV> 03/27/24 1205 DD/ 1135 TD/TT: 03/27/24 1153 Supervisor Rough End: us Shlomo Salcedo MD IMG XR PROCEDURES Fin al Result * XR Chest 2 Views (03/27/2024 11:35 AM EST) Anatomical Region Laterality Modality Chest Radiographic Rosibel ging 03/27/2024 11:3 5 AM EST Narrative 03/27/2024 12:04 PM EST ?[facility] ?[address] ?[place] [address] ?XRay Report ? Signed ? Patient: Musa,Louise I ?MR#: [id number] ?? 1296 ? : 1960 ?Acct:[id number] ? Age/Sex: 63 / F ?ADM Date: 03/27/24 ? Loc: HO.HHCX ? Attending Dr: Shlomo Rooney MD ? Ordering Physician: Shlomo Rooney MD ?? Date of Service: 03/27/24 ?? Procedure(s): XR chest 2V ?? Accession Number(s): [id number] ? cc: Shlomo Rooney MD ? EXAMINATION: ?? XR CHEST ? CLINICAL INFORMATION: ?? cough ? COMPARISON: ?? 11/25/2023 low-dose screening CT chest. ? TECHNIQUE: ?? 2 views of the chest were obtained. ? FINDINGS: ?? The cardiac, hilar, and mediastinal contours are normal. ? The lungs are mildly hyperaerated, however clear bilaterally. There is ?? no pneumothorax or pleural effusion. ? There is no focal osseous or soft tissue abnormality. Mild spinal ?? degenerative changes. ? XR/XR chest 2V ?? IMPRESSION: ?? No active pulmonary disease. ? Electronically signed by: ??Wicho Rangel MD ??03/27/2024 12:01 PM EST RP ? Dictated By: ?Wicho Rangel MD ? Signed By: ?<Electronically signed by Wicho Rangel MD in OV> ?03/27/24 1201 ? DD/ 1135 ? TD/TT: 03/27/24 1153 ? Supervisor Rough End: ? Procedure Note Theron Samuel - 03/27/2024 [facility] [address] [place] [address] XRay Report Signed Patient: Abimael Vigilga IMR#: [id number] 1296 : 2Acct:[id number] Age/Sex: 63 / FADM Date: 03/27/24 Loc: HO.HHCX Attending Dr: Shlomo Rooney MD Ordering Physician: Shlomo Rooney MD Date of Service: 03/27/24 Procedure(s): XR chest 2V Accession Number(s): [id number] cc: Shlomo Rooney MD EXAMINATION: XR CHEST CLINICAL INFORMATION: cough COMPARISON: 11/25/2023 low-dose screening CT chest. TECHNIQUE: 2 views of the chest were obtained. FINDINGS: The cardiac, hilar, and mediastinal contours are normal. The lungs are mildly hyperaerated, however clear bilaterally. There is no pneumothorax or pleural effusion. There is no focal osseous or soft tissue abnormality. Mild spinal degenerative changes. XR/XR chest 2V IMPRESSION: No active pulmonary disease. Electronically signed by: Wicho Rangel MD 03/27/2024 12:01 PM EST Dictated By: Wicho Rangel MD Signed By: <Electronically signed by Wicho Rangel MD in OV> 03/27/24 1201 DD/ 1135 TD/TT: 03/27/24 1153 Supervisor Rough End: Shlomo Salcedo MD IMG XR PROCEDURES Fin al Result * POCT Rapid Influenza B VENTURA ID NOW (03/27/2024 11:15 AM EST) Influenza B Negative Negative, Indeterminate [facility] QC Media Lot # [id number] [facility] Lot# Expiration Date [id number] [facility] Swab 03/27/2024 11:1 5 AM EST Shlomo Salcedo MD POINT OF CARE TEST EN TER/EDIT ORDERABLES Final Result [facility] [address] [place] [phone] * POCT Rapid Influenza A VENTURA ID NOW (03/27/2024 11:15 AM EST) Pathologist [facility] Influenza A Negative Negative, Indeterminate [facility] QC Media Lot # [id number] [facility] Lot# Expiration Date [facility] Swab 03/27/2024 11:1 5 AM EST us Shlomo Salcedo MD POINT OF CARE TEST EN TER/EDIT ORDERABLES Final Result [facility] [address] [place] [phone] * POCT Rapid Strep A VENTURA ID NOW (03/27/2024 11:02 AM EST) [facility] Rapid Strep A Screen Negative Negative, None Detected QC Media Lot # [id number] Lot# Expiration Date Swab 03/27/2024 11:0 2 AM EST us Shlomo Salcedo MD POINT OF CARE TEST EN TER/EDIT ORDERABLES Final Result * POCT Rapid Covid-19 BinaxNOW (03/27/2024 10:58 AM EST) [facility] Rapid COVID Ag Negative QC Media Lot # [id number] Lot# Expiration Date Swab 03/27/2024 10:5 8 AM EST us Shlomo Salcedo MD POINT OF CARE TEST EN TER/EDIT ORDERABLES Final Result * Referral to Ophthalmology (01/06/2024) us Cici Nunes OD OUTPATIENT REFERRAL ORDERABLES Final Result * BI Mammogram Screening Tomosynthesis Bilateral (09/27/2023 3:55 PM EDT) Anatomical Region Laterality Modality Breast Bilateral Mammography 09/27/2023 3:55 PM EDT Narrative 09/28/2023 10:08 AM EDT ? [facility] ? [address] ?[place] [address] ? Mammography Report ? Signed ? Patient: Musa,Louise I ?MR#: [id number] ?? 1296 ? : 1960 ?Acct:[id number] ? Age/Sex: 63 / F ?ADM Date: 09/27/23 ? Loc: HO.MAMMO ? Attending Dr: Lanny Strong HELICOPTER REPAIRER ? Ordering Physician: LANNY STRONG NP ?Results: 1Negative ? Date of Service: 09/27/23 ?Follow Up: 1 Year From Orig ?? inal Mammogram ? Procedure(s): MM tomosynthesis screening BI ?? Accession Number(s): [id number] ? cc: LANNY STRONG NP ? EXAMINATION: ?? MM SCREENING DIGITAL BREAST TOMOSYNTHESIS, BILATERAL ? CLINICAL INFORMATION: ? Screening. Asymptomatic. ? COMPARISON: ?? Mammography: This study is compared with prior exams dating back to ?? 2019. ? TECHNIQUE: ?? Digital breast tomosynthesis is performed in both the craniocaudal and ?? mediolateral oblique views along with computer-aided detection (CAD). ?? Synthesized 2D images are generated from the tomosynthesis. ? FINDINGS: ?? The breasts are heterogeneously dense, which may obscure small masses ?? (ACR BI-RADS breast composition Category c). ? There are no significant masses, abnormal calcifications, or other ?? abnormalities. ? MM/MM tomosynthesis screening BI ?? IMPRESSION: ?? No mammographic evidence of malignancy. ? ASSESSMENT: ? BI-RADS BI-RADS 1 - Negative ? RECOMMENDATION: ?? Routine annual mammography screening. ? 1 year F/U ? This examination should not preclude the clinical evaluation of a ?? suspicious palpable abnormality. ? This patient's information was entered into a reminder system with a ?? target due date for their next mammogram. ? Dictated By: ?Vera Dinero MD ? Signed By: ?<Electronically signed by Vera Dinero MD in OV> ? 09/28/23 1004 ? DD/ 1555 ? TD/TT: ? Supervisor Rough End: ? Procedure Note Donjayter, Image - 09/28/2023 [place] [facility] [address] [place] [address] Mammography Report Signed Patient: Louise Vigil IMR#: [id number] 1296 : 2Acct:[id number] Age/Sex: 63 / FADM Date: 09/27/23 Loc: ZEENAT.MAMMO Attending Dr: Lanny Strong NP Ordering Physician: LANNY STRONGesults: 1Negative Date of Service: 09/27/23Follow Up: 1 Year From Orig inal Mammogram Procedure(s): MM tomosynthesis screening BI Accession Number(s): [id number] cc: LANNY STRONG NP EXAMINATION: MM SCREENING DIGITAL BREAST TOMOSYNTHESIS, BILATERAL CLINICAL INFORMATION: Screening. Asymptomatic. COMPARISON: Mammography: This study is compared with prior exams dating back to 2019. TECHNIQUE: Digital breast tomosynthesis is performed in both the craniocaudal and mediolateral oblique views along with computer-aided detection (CAD). Synthesized 2D images are generated from the tomosynthesis. FINDINGS: The breasts are heterogeneously dense, which may obscure small masses (ACR BI-RADS breast composition Category c). There are no significant masses, abnormal calcifications, or other abnormalities. MM/MM tomosynthesis screening BI IMPRESSION: No mammographic evidence of malignancy. ASSESSMENT: BI-RADS BI-RADS 1 - Negative RECOMMENDATION: Routine annual mammography screening. 1 year F/U This examination should not preclude the clinical evaluation of a suspicious palpable abnormality. This patient's information was entered into a reminder system with a target due date for their next mammogram. Dictated By: Vera Dinero MD Signed By: <Electronically signed by Vera Dinero MD in OV> 09/28/23 1004 DD/ 1555 TD/TT: Supervisor Rough End: us Lanny Strong ANP IMG BI PROCEDURES Final Result * (ABNORMAL) Lipid Panel, Standard (09/27/2023 10:14 AM EDT) Triglycerides 159(H) <150 mg/dL [facility] Comment:Desirable Triglyceri de: less than 150 mg/dLBorderline High Triglyceride 150-199 mg/dLHigh Triglyceride: 200-499 mg/dLVery High Triglyceride: greater than or equal to 5OO mg/dL Cholesterol 218(H) <200 mg/dL [facility] Comment:Desirable Cholestero l: less than 200 mg/dLBorderline High Cholesterol: 200-239 mg/dLHigh Cholesterol: greater than 239 mg/dL LDL Cholesterol Calculated 129(H) <100 mg/dL [facility] Comment:Desirable LDL: less than 100 mg/dLNear Optimal/Above Optimal LDL: 110- 129 mg/dLBorderline High LDL: 130-159 mg/dLHigh LDL: 160-189 mg/dLVery High LDL: greater than or equal to 190 mg/dL HDL Cholesterol 58 >40 mg/dL [facility] Comment:Desirable HDL: great er than 40 mg/dL Note: This HDL assay may give artificially low results in patients with liver disease. Blood Venous blood specimen / Unknown 09/27/2023 10:14 AM EDT 09/27/2023 11:14 AM EDT us Lanny Strong ANP LAB BLOOD ORDERABLES Final Resul t [facility] [address] [place] [phone] from Last 3 Months or Most Recently Relevant to Health Maintenance Insurance [facility] Care Teams Blow Off Worker Relationship Specialty Start Date End Date Lanny Strong ANP [address] [place] [id number] PCP - General Family Medicine 01/13/22
== END 2024-06-06 08:20 | disposition home or self-care (01) ==
LOC: HO.MAMMO 08:19
PROVIDERS: PCP Nurse Practitioner Primary Care; Visit Provider Nurse Practitioner Primary Care
DX: Z13.820 Encounter for screening for osteoporosis (principal); Z78.0 Asymptomatic menopausal state; M85.80 Other specified disorders of bone density and structure, unspecified site
CPT/HCPCS: 77080

== ENCOUNTER → 2024-06-06 08:45 | Outpatient (BNV) | payer OTHER, SELFPAY | PROVIDERS: PCP Nurse Practitioner Primary Care; Visit Provider Radiology Diagnostic Radiology | DX: E28.39 Other primary ovarian failure (principal) | CPT/HCPCS: 77080 ==

== ENCOUNTER 2024-07-23 15:48 | Outpatient (REF) | payer OTHER, SELFPAY ==
[2024-07-23 17:35] LABS: Parathyroid Hormone Intact 79.6 pg/mL (8.7-77.1)
[2024-07-23 17:37] LABS: Alanine Aminotransferase 46 U/L (0-31); Albumin Level 4.2 g/dL (3.5-5.0); Alkaline Phosphatase 115 U/L (39-117); Anion Gap 13 (12-20); Aspartate Amino Transferase 28 U/L (5-31); Bilirubin Total 0.4 mg/dL (0.0-1.0); Blood Urea Nitrogen 18 mg/dL (9-16); Calcium 9.3 mg/dL (8.4-10.2); Carbon Dioxide 28 mmol/L (22-29); Chloride 107 mmol/L (96-108); Estimated Glomerular Filt Rate > 60; Glucose Random 119 mg/dL (60-115); Potassium 3.8 mmol/L (3.3-5.1); Sodium 144 mmol/L (135-145); Total Protein 7.4 g/dL (6.5-8.0)
[2024-07-23 17:52] LABS: Vitamin D 25-OH Total 14.6 ng/mL (>30)
== END 2024-07-23 15:49 | disposition home or self-care (01) ==
LOC: HO.LAB 15:48
PROVIDERS: PCP Nurse Practitioner Primary Care; Visit Provider Nurse Practitioner Primary Care
DX: M81.0 Age-related osteoporosis without current pathological fracture (principal); E11.69 Type 2 diabetes mellitus with other specified complication; E78.5 Hyperlipidemia, unspecified
CPT/HCPCS: 36415; 80053; 82306; 83970

== ENCOUNTER 2024-08-28 10:09 | Day surgery (SDC) | payer OTHER, SELFPAY ==
--- OUTSIDE RECORDS SUMMARY | 2024-08-14 11:03 | XMS_ITS | Encounter Summary ---
Author Organization [employer] Address [address] [facility] [place] [address] Care Team Providers Care Joint Yarner Name Role Phone Loida Tabares Primary Care Provider [phone] Reason for Visit * Reason Onset Date Comments Lab Orders 08/10/2024 Encounter Details Date Type Department Care Team ([facility] st Contact Info) Description 08/10/2024 Results Follow-Up [facility] [address] [place] [address] Loida Tabares ANP [address] [place] [address] Vitamin D, 25-Hydroxy, Total, Immunoassay, PTH, Intact Without Calcium Social History Tobacco Use Types Packs/Day Years Used Date Smoking Tobacco: Some Days Cigarettes Smokeless Tobacco: Never Alcohol Use Standard Drinks/Week Comments Yes 0 [...] t he electric, gas, oil or water [employer] threatened to shut off services in your [...] Orientation Straight 01/13/2022 11 :55 AM EST documented as of this encounter Miscellaneous Notes * Telephone Encounter - Charlene Becker RN - 08/13/2024 9:51 AM EDT TC placed to pt and a VM was left to call back the office in regards to the 24 hour urine test ordered by PCP below ----- Message from Loida Tabares sent at 08/10/2024 4:44 PM EDT ----- Hi, please let Louise know that I have ordered a urine test for her that is a 24- hour urine collection to measure calcium and urine. Vitamin D level is very low and will recommend supplementation but would like her to get this urine test done first. Ideally would be done before our visit next month. ----- Message ----- From: Interface, Lab Results In Sent: 07/23/2024 5:35 PM EDT To: WONG Beach * Result Encounter Note - WONG Beach - 08/10/2024 4:44 PM EDT Hi, please let Louise know that I have ordered a urine test for her that is a 24- hour urine collection to measure calcium and urine. Vitamin D level is very low and will recommend supplementation but would like her to get this urine test done first. Ideally would be done before our visit next month. documented in this encounter Plan of Treatment Upcoming Encounters Date Type Department Care Team (Late st Contact Info) Description 09/14/2024 2:15 PM EDT Office Visit [facility] [address] [place] [address] Loida Tabares ANP [address] [place] [address] Scheduled Orders Name Type Priority Associated Diagnoses Orde r Schedule Calcium, 24 Hour Urine W/ Creatinine Lab Routine Age-related osteoporosis without current pathological fracture Elevated parathyroid hormone Expected: 08/10/2024 (Approximate), Expires: 08/10/2025 documented as of this encounter Visit Diagnoses Diagnosis Age-related osteoporosis without current pathological fracture- Primary Elevated parathyroid hormone documented in this encounter Care Teams Joint Yarner Relationship Specialty Start Date End Date Loida Tabares ANP [address] [place] [id number] PCP - General Family Medicine 01/13/22 documented as of this encounter
--- NOTE | 2024-08-27 08:44 | HO.ANESPROP2 ---
Documented by User: Darby Aaron NP 08/27/24 08:45 HPI - Anesthesia Eval Consult details Narrative: 64yo F for Upper Endoscopy and Colonoscopy [facility] Active Problems Active Problems: All Active Problems Colon cancer screening (Acute) Dysphagia (Acute) Gastritis (Acute) Osteopenia (Acute) High cholesterol (Acute) Diabetes (Acute) Obesity (BMI 30.0-34.9) (Acute) Carpal tunnel syndrome, bilateral (Acute) GERD (gastroesophageal reflux disease) (Acute) Nicotine dependence, cigarettes, uncomplicated (Acute) Trigger finger, right middle finger (Acute) Past Medical History Medical History Numbness and tingling in both hands GERD (gastroesophageal reflux disease) Nicotine dependence, cigarettes, uncomplicated Surgical History Surgical History H/O cystoscopy H/O cystocele repair History of hysterectomy History of tonsillectomy Social History Social History Are you a primary youth care professional to a significant other at home: No Do you presently have visiting nurse or other home services: No Patient Tobacco Use Status: Current everyday Tobacco user Tobacco use type: Cigarette Cigarettes Per Day: 2 Years Smoked: (onset 17yo, 1/2ppd x 46yrs, now 1-2cig/day - 23pyh) Have you been hit, kicked, punched, or otherwise hurt by someone within the past year? If so, by whom?: No Advance Directives: No Advance Directives Information Provided: Yes Current occupational status: employed Current occupation: rt handed, [employer] Meds Allergies Allergy/AdvReac Type Severity Reaction Status Date / Time No Known Allergies Allergy Verified 03/13/24 13:49 Home Medications ?Medication ?Instructions ?Recorded ?Confirmed ?Last Taken ?Type metformin 500 mg tablet 500 mg PO DAILY 12/21/23 02/27/24 Unknown History atorvastatin 10 mg tablet 10 mg PO BEDTIME 02/27/24 02/27/24 Unknown History Assessment and Plan Assessment Anesthesia Assessment: Chart Reviewed Documented by User: Nurys Reis MD 08/28/24 13:03 [facility] Past Medical History Medical History Numbness and tingling in both hands GERD (gastroesophageal reflux disease) Nicotine dependence, cigarettes, uncomplicated Family History Family history of problems with anesthesia: No Surgical History Surgical History H/O cystoscopy H/O cystocele repair History of hysterectomy History of tonsillectomy History of Problems with Anesthesia: No Social History Social History Are you a primary youth care professional to a significant other at home: No Do you presently have visiting nurse or other home services: No Patient Tobacco Use Status: Current everyday Tobacco user Tobacco use type: Cigarette Cigarettes Per Day: 2 Years Smoked: (onset 17yo, 1/2ppd x 46yrs, now 1-2cig/day - 23pyh) Have you been hit, kicked, punched, or otherwise hurt by someone within the past year? If so, by whom?: No Advance Directives: No Advance Directives Information Provided: Yes Current occupational status: employed Current occupation: rt handed, [employer] Meds Allergies Allergy/AdvReac Type Severity Reaction Status Date / Time No Known Allergies Allergy Verified 03/13/24 13:49 Home Medications ?Medication ?Instructions ?Recorded ?Confirmed ?Last Taken ?Type metformin 500 mg tablet 500 mg PO DAILY 12/21/23 02/27/24 Unknown History atorvastatin 10 mg tablet 10 mg PO BEDTIME 02/27/24 02/27/24 Unknown History Exam Airway Mallampati Class: II TM Dist: >3cm Neck ROM: Full Heart: rrr Lungs: cta Assessment and Plan Assessment Anesthesia Assessment: Anesthesia Plan Discussed Final Anesthetic Review Family History of Problems with Anesthesia: No History of Problems with Anesthesia: No NPO: Yes ASA Class: III Final Preanesthetic Review: No Changes in Pt Med Stat, Meds/Allgs Chart Reviewed, Consent Obtained/Reviewed and Anes Risks/Benef Reviewed Patient Risk: Intermediate Procedure Risk: Low Anesthetic Plan Anesthetic Plan: MAC: Disposition: Standard PACU
[2024-08-28 06:25] VITALS: BMI 32.4
[2024-08-28 10:23] VITALS: BP 133/67; PULSE 86; RESP 18; TEMP 36.4; O2SAT 96; BMI 32.4
[2024-08-28 10:48] LABS: Glucose, Whole Blood 122 mg/dL (60-115)
[2024-08-28] MEDS: Lactated Ringers 1,000 ML 100 ML IVCONT (10:50)
--- NOTE | 2024-08-28 12:39 | MHC.SHP ---
Pre-Procedural Eval Section A - 24 Hr Update-Section A only Date of Service: 08/28/24 Section B - Complete if H&P > 30 days Chief Complaint: dysphagia,screening Details of Present Illness: Numbness and tingling in both hands GERD (gastroesophageal reflux disease) Nicotine dependence, cigarettes, uncomplicated Surgical History H/O cystoscopy H/O cystocele repair History of hysterectomy History of tonsillectomy Allergies: Allergies Allergy/AdvReac Type Severity Reaction Status Date / Time No Known Allergies Allergy Verified 03/13/24 13:49 Review of Systems Review of Systems Comment: Ten point ROS negative Exam Exam Comment: Gen appear: No acute distress HEENT: no icterus Chest: No overt resp distress Abd: soft, nontender, nondistended Psych: Stable affect, answering questions appropriately Neuro: A/Ox3 noted to move all extremities spontaneously Ext: no peripheral edema Plan Diagnosis/Plan: Unchanged I have reviewed the history and physical and performed a pertinent physical examination on my patient. No changes have occurred unless specified. Time Spent With Patient Time: Total time managing care of this patient today ____ minutes.
--- NOTE | 2024-08-28 12:51 | P.OPN-COLO_ITS ---
Colonoscopy Operative Note Operative Note Date of Service: 08/28/24 Narrative: Procedure: Upper endoscopy and colonoscopy Indication: Dysphagia Endoscopist: Liv Duque MD Anesthesia Provider: Prieto Mobley CRNA Anesthesia type: MAC Instrument: [id number] and [id number] EGD Procedure:?? The procedure, indications, preparation and potential complications were reviewed with the patient, who indicated understanding and gave written informed consent to proceed. The endoscope was introduced through the mouth, and advanced to the 2nd part of the duodenum. The mucosa was carefully examined on slow withdrawal of the endoscope. The patient tolerated the procedure well. There were no immediate complications.? EGD Findings:? * Esophagus:? Small linear ulceration measuring 1 cm above the Z-line were noted. These were not crossing the mucosal folds. The Z-line was at 34 cm. Cold forceps biopsies were taken from lower and middle esophagus to rule out eosinophilic esophagitis. * Stomach:? Erythema and erosions in the antrum. Retroflexion was performed in the cardia. Cold forceps biopsies were taken from the body and antrum of the stomach. * Duodenum:? Erythema and edema of the duodenal bulb and 1st portion of the duodenum. Cold forceps biopsies were taken from the duodenal bulb and 2nd portion of the duodenum to rule out celiac sprue. Additional intervention: Soft tip Savary wire was introduced through the biopsy channel of the gastroscope and advanced to the antrum. ?The gastroscope was then backed out. ?Savary Gatito bougie was advanced over the guidewire and the esophagus was dilated to 18 mm with resistance felt. ?On relook, superficial tear was noted at the level of cricopharyngeus indicating successful dilation. ? Colonoscopy Procedure:? The patient was then turned for the colonoscopy. A digital rectal exam was performed which was normal.? A distal attachment cap was affixed to the tip of the scope and the colonoscope was then inserted through the anus and advanced through the colon and advanced to the cecum at 75 cm and terminal ileum.? Appendiceal orifice and ileocecal valve were identified. Mucosa was carefully examined under high definition white light as the instrument was slowly withdrawn in a retrograde panoramic fashion. Retroflexion was performed in ascending colon and rectum. The procedure was not difficult. The quality of the prep was BBPS: 2+2+3 = adequate Withdrawal time 10 minutes Limitations: No limitations Findings: Mucosa: Normal colon and terminal ileum mucosa. Protruding lesions: * Two sessile polyp of size 2-4 cm noted in the sigmoid colon. Cold snare polypectomy was performed. The polyps were completely removed and retrieved. * Medium internal hemorrhoids without stigmata of recent bleeding. Impression: 1. Grade B esophagitis (biopsy) 2. Cricopharyngeal stenosis (dilation) 3. Gastritis (biopsy) 4. Duodenitis (biopsy) 5. Normal colon and terminal ileum mucosa 6. Two polyps removed 7. Internal and external hemorrhoids Recommendations:?? * Follow-up path results * Avoid NSAIDs * Increase omeprazole 20 mg BID x 8 weeks and then once daily * Start H Pylori treatment if biopsies + * Repeat colonoscopy for CRC screening in 5-7 years.
[2024-08-28 13:40] VITALS: BP 117/69; PULSE 77; RESP 12; TEMP 36.3; O2SAT 99
[2024-08-28 13:55] VITALS: BP 121/67; PULSE 74; RESP 16; TEMP 36.5; O2SAT 96
== END 2024-08-28 14:22 | disposition home or self-care (01) ==
PROVIDERS: PCP Nurse Practitioner Primary Care; Visit Provider Internal Medicine
PROC: (CPT 45385; principal; 2024-08-28 12:30)
DX: Z12.11 Encounter for screening for malignant neoplasm of colon (principal); K63.5 Polyp of colon; K64.8 Other hemorrhoids; K64.4 Residual hemorrhoidal skin tags; K59.00 Constipation, unspecified; R13.10 Dysphagia, unspecified; J38.6 Stenosis of larynx; K21.9 Gastro-esophageal reflux disease without esophagitis; K20.80 Other esophagitis without bleeding; K29.70 Gastritis, unspecified, without bleeding; K29.80 Duodenitis without bleeding; K44.9 Diaphragmatic hernia without obstruction or gangrene; E11.9 Type 2 diabetes mellitus without complications; E78.00 Pure hypercholesterolemia, unspecified; E66.9 Obesity, unspecified; Z68.32 Body mass index [BMI] 32.0-32.9, adult; Z79.899 Other long term (current) drug therapy; Z98.890 Other specified postprocedural states; F17.210 Nicotine dependence, cigarettes, uncomplicated; Z79.84 Long term (current) use of oral hypoglycemic drugs
CPT/HCPCS: 45385; 43248; 43239; 82947; 88305; 88312; 88313; 88342; C1769; J2003; J2704

== ENCOUNTER → 2024-08-28 10:09 | Outpatient (BNV) | payer OTHER, SELFPAY | PROVIDERS: PCP Nurse Practitioner Primary Care; Visit Provider Internal Medicine | DX: R13.10 Dysphagia, unspecified (principal); K31.89 Other diseases of stomach and duodenum; K63.5 Polyp of colon; K64.8 Other hemorrhoids | CPT/HCPCS: 43239; 45385 ==

== ENCOUNTER 2024-09-17 10:32 | Outpatient (AMB) | payer OTHER, SELFPAY ==
[2024-09-17 10:38] VITALS: BP 145/64; PULSE 76; BMI 32.3
--- NOTE | 2024-09-17 10:38 | A.OFFVIS_ITS ---
Vital Signs 09/17/24 10:38 Height 4 ft 10 in Weight 154 lb 5.177 oz BMI 32.3 BP 145/64 H Blood Pressure Location Lt brachial Position Sitting Pulse 76 Intake Visit Reasons: s/p double Intake Note: Louise presents in the office as a follow uo for her EGD and COLO. CC: She states she is just here for results - no concerns. [employer]rm Solution [employer] Required: No Allergies No Known Allergies Allergy (Verified 09/17/24 10:41) HPI Comments Details: 63 y.o F with PMH of obesity, DM, HLD, who is here for reflux and difficulty swallowing x 2 years. Reports progressively getting worse sonny since the last 6 months. Had a near food obstruction instance yesterday. Has not needed to go to the hospital. Notices it more with liquids. Has never had any endoscopy. Has also not had any CRC screening including stool based. Smokes 1-2 cigs/day. No fam hx of esophageal ca, colon ca. No rectal bleeding. No unintentional weight loss. 08/28/24: 1. Grade B esophagitis (biopsy) 2. Cricopharyngeal stenosis (dilation) 3. Gastritis (biopsy) 4. Duodenitis (biopsy) 5. Normal colon and terminal ileum mucosa 6. Two polyps removed 7. Internal and external hemorrhoids A. Duodenum, biopsy: Duodenal mucosa with mildly increased intraepithelial lymphocytes and preserved villous architecture. See comment. B. Stomach, antrum, biopsy: Antral-type oxyntic mucosa with mild chronic inactive inflammation; no Helicobacter organisms seen. C. Stomach, body, biopsy: Oxyntic mucosa with mild chronic inactive inflammation; no Helicobacter organisms seen. D. Esophagus, lower, biopsy: Active esophagitis (rare neutrophils); no atypia or fungi identified. E. Esophagus, middle, biopsy: Active esophagitis (mostly neutrophils with fewer eosinophils); no atypia or fungi identified. F. Colon, sigmoid, polypectomies: Colonic mucosa with mild surface hyperplastic changes; multiple additional levels examined 09/17/24: Reports significant improvement in dysphagia since dilation. Has not been able to start PPI b.i.d. picked it up from pharmacy yesterday. Otherwise, no other symptoms, no abdominal pain, nausea, vomiting. Duodenal biopsies reviewed. Patient states she was not on any PPI or H2 lily prior to EGD and colonoscopy. Will check for celiac. [facility] Medical History Numbness and tingling in both hands GERD (gastroesophageal reflux disease) Nicotine dependence, cigarettes, uncomplicated Surgical History H/O cystoscopy H/O cystocele repair History of hysterectomy History of tonsillectomy Social History Are you a primary mall plant caretaker to a significant other at home: No Do you presently have visiting nurse or other home services: No Patient Tobacco Use Status: Current everyday Tobacco user Tobacco use type: Cigarette Cigarettes Per Day: 2 Years Smoked: (onset 17yo, 1/2ppd x 46yrs, now 1-2cig/day - 23pyh) Current occupational status: employed Current occupation: rt handed, [employer] WORK[employer] Review of Systems Const All systems reviewed & are unremarkable except as noted in HPI and below Physical Exam Exam Exam: No apparent distress Nonicteric Abdomen soft, nondistended Alert and oriented x3, normal gait Vital Signs: Last Vital Signs Pulse 76 09/17/24 10:38 BP 145/64 H 09/17/24 10:38 BMI result Body Mass Index 32.3 Assessment & Plan Assessment & Plan (1) Dysphagia: Code(s): R13.10 - Dysphagia, unspecified Category: Medical (2) GERD (gastroesophageal reflux disease): Code(s): K21.9 - Gastro-esophageal reflux disease without esophagitis Category: Medical (3) Esophagitis determined by endoscopy: Code(s): K20.90 - Esophagitis, unspecified without bleeding Category: Medical (4) Duodenitis: Code(s): K29.80 - Duodenitis without bleeding Category: Medical Plan 1. GERD with esophagitis Noted on endoscopy. Patient reminded to start PPI b.i.d. and take for 8 weeks, and then once daily indefinitely. Dysphagia better. Was advised to let us know if this returns for dilation p.r.n.. 2. Duodenitis Pathology with increased i.e. meals. H pylori negative. Likely peptic, but given histological findings, will rule out celiac disease. 3. Polyps Hyperplastic polyps. Given quality of prep, will repeat colonoscopy in 7 years. Follow-up 1 year unless actionable findings on celiac panel. Orders: Orders Transglutaminase IgA Today K29.80 - Duodenitis without bleeding Immunoglobulin A Today K29.80 - Duodenitis without bleeding Coding Level of Care Code Est Pt Level 4 (30017) Diagnoses Dysphagia R13.10 GERD (gastroesophageal reflux disease) K21.9 Esophagitis determined by endoscopy K20.90 Duodenitis K29.80
== END 2024-09-17 11:00 | disposition home or self-care (01) ==
LOC: HO.HGI 10:33
PROVIDERS: PCP Nurse Practitioner Primary Care; Visit Provider Internal Medicine
DX: R13.10 Dysphagia, unspecified (principal); K21.9 Gastro-esophageal reflux disease without esophagitis; K20.90 Esophagitis, unspecified without bleeding; K29.80 Duodenitis without bleeding
CPT/HCPCS: 99214

== ENCOUNTER 2024-09-17 10:32 | Outpatient (REF) | payer OTHER, SELFPAY ==
--- OUTSIDE RECORDS SUMMARY | 2024-09-17 12:32 | XMS_ITS | Clinical Summary ---
Author Organization [employer] Address [address] [place] [address] Care Team Providers Care Neurology Stroke Physician Name Role Phone Lanny Strong WONG Primary Care Provider [phone] Allergies No known active allergies Medications naproxen (Naprosyn) 500 MG tabletIndication s:Right foot [...] 2025 Active omeprazole (PriLOSEC) [address] capsuleIndicatio ns:Gastroesophag eal reflux disease, unspecified whether esophagitis present Take 1 capsule (20 mg) by mouth before breakfast. Do not crush or chew. 90 capsule 1 025 Active metFORMIN XR (Glucophage-XR) 500 MG 24 hr tabletIndication s:New onset type 2 diabetes mellitus (CMS/HCC) Take 1 tab once daily with food 90 tablet 1 025 Active estradiol (Estrace) 0.1 MG/GM vaginal creamIndications :Vaginal atrophy 2g once daily for 1 week, then twice weekly intravaginally 42.5 g 5 025 Active Calcium Carb-Cholecalcif leslee 600-10 MG-MCG capsuleIndicatio ns:Age-related osteoporosis without current pathological fracture Take 1 tablet by mouth 2 times daily. 180 capsule 3 025 Active atorvastatin (Lipitor) 10 MG tabletIndication s:Type 2 diabetes mellitus with hyperlipidemia (CMS/HCC) (CMS/HCC) Take 1 tablet (10 mg) by mouth Once daily. 90 tablet 3 025 2025 Active azithromycin (Zithromax Z-Chavez) 250 MG tabletIndication s:Cough, unspecified type Take 2 tabs po x 1 day then 1 tab po daily x 4 days 6 tablet 025 2024 Discontinued(T herapy completed) atorvastatin (Lipitor) 10 MG tabletIndication s:Type 2 diabetes mellitus with hyperlipidemia (CMS/HCC) (CMS/HCC) Take 1 tablet (10 mg) by mouth at bedtime. 90 tablet 3 025 2024 Discontinued(R eorder (will not trigger notification to Pharmacy)) Active Problems Problem Noted Date Diagnosed Date Age-related osteoporosis wit hout current pathological fracture 06/27/2024 Right foot pain 03/27/2024 Assessment & Plan [...] Encounters Date Type Department Care Team Description 09/14/2024 2:15 PM EDT Office Visit [address] [address] Lanny Strong ANP Type 2 diabetes mellitus with hyperlipidemia (CMS/HCC) (CMS/HCC) (Primary Dx); Age-related osteoporosis without current pathological fracture; Bilateral carpal tunnel syndrome 09/14/2024 Travel 09/13/[address] [address] Lanny Strong ANP chart prep 09/13/2024 Telephone [facility] [address] [place] [phone] [place], [place] Cologard Kit (Called patient twice to offer new cologard test kit. No answer. Message left with details and call back number.) 09/07/2024 Patient Outreach [facility] [address] [place], [place] [phone] Lanny Strong ANP Pre-visit Planning ([facility] unable to reach [facility]) 08/28/2024 Orders Only GENERIC EXTERNAL DATA DEPARTMENT Provider, Generic External Data 08/10/2024 Results Follow-Up [address] [address] Lanny Strong ANP Vitamin D, 25-Hydroxy, Total, Immunoassay, PTH, Intact Without Calcium 07/13/2024 Orders Only [address] [address] Lanny Strong ANP Age-related osteoporosis without current pathological fracture (Primary Dx) 07/13/2024 Results Follow-Up [address] [address] Lanny Strong ANP BD DEXA Axial 06/27/2024 Telephone [facility] [address] [place] [address] Lanny Strong ANP from Last 3 Months Social History Tobacco Use Types Packs/Day Years Used Date Smoking Tobacco: Some Days Cigarettes Smokeless Tobacco: Never Tobacco Cessation:Ready to Q uit: Not Asked; Counseling Given: Not Answered Alcohol Use Standard Drinks/Week Comments Yes 0 (1 standard drink = 0.6 oz pur e alcohol) weekends Depression Answer Date Recorded Patient Health Questionnaire-9 Score 3 09/14/2024 Patient Health Questionnaire-9 Score 3 09/14/2024 Last PHQ-9: Questionnaire Data Not on file 0 09/14/2024 Housing Stability Answer Date Recorded What is your housing situation today? I do not have housing (Staying with others, in a hotel, in a care home, living outside on the street, on a beach, in a car, or in a park 09/14/[address] you li ve. Do you have problems with any of the following? None of the above 09/14/2024 Food Insecurity Answer Date Recorded Within the past 12 months, y ou worried that your food would run out before you got money to buy more: Never True 09/14/2024 Within the past 12 months,th e food you bought just didn't last and you didn't have enough money to get more: Never True Transportation Answer Date Recorded In the past 12 months, has l ack of transportation kept you from medical appts, meetings, work or from getting things needed for daily living? No 09/14/2024 Utilities Answer Date Recorded In the past 12 months, has t he electric, gas, oil or water [employer] threatened to shut off services in your home? No 09/14/2024 Depression Answer Date Recorded Patient Health Questionnaire-2 Score 2 09/14/2024 Internet Access Answer Date Recorded Internet Access Q1 No 09/14/2024 Internet Access Q2 I do not want or need it 08/22 Comments Unknown Sex and Gender Information Value Date Recorded Sex Assigned at Female 01/13/2022 11:55 AM EST Legal Sex Female 11:50 AM EST Gender Identity Female 01/13/2022 11:55 AM EST Sexual Orientation Straight 01/13/2022 11 :55 AM EST Last Filed Vital Signs Vital Sign Reading Time Taken Comments Blood Pressure 122/78 09/14/2024 2:52 PM EDT Pulse 84 09/14/2024 2:52 PM EDT Temperature 37.2 C (99 F) 09/14/2024 2:52 PM EDT Respiratory Rate 14 09/14/2024 2:52 PM EDT Oxygen Saturation 99% 09/14/2024 2:52 PM EDT Inhaled Oxygen Concentration - - Weight 71.9 kg (158 lb 9.6 oz) 09/14/2024 2:52 P M EDT Height 149.9 cm (4' 11 ) 05/11/2024 2:47 PM EDT Body Mass Index 32.03 05/11/2024 2:47 PM EDT Plan of Treatment Upcoming Encounters Date Type Department Care Team (Late st Contact Info) Description 10/02/2024 11:15 AM EDT Office Visit [facility] [address] [place] [address] Rosario Srinivasan, CN [address] [place] [address] Health Maintenance Due Date Last Done Comments CT Colonography 1961 FIT DNA/Cologuard 1960 FIT 1960 FOBT 1960 HIV Screening 1960 Sigmoidoscopy 1960 Hepatitis C Screening 05/30/1979 Diabetes: Urine Protein Screening 1980 Pneumococcal Vaccine: 50+ Years (1 of 2 - PCV) 1980 Pap Smear 1982 HPV/Cotest 05/30/1991 Zoster Vaccines (1 of 2) 05/30/2011 Lipid Panel 09/26/2024 09/27/2023 Influenza Vaccine (#1) 2024 11/24/2023, 2019 Diabetes: Hemoglobin A1C 12/15/2024 025, 05/11/2024, 03/27/2024, Additional history exists Diabetes: Foot Exam 03/27/2025 03/27/2024 Alcohol/Substance Use Screening 05/11/2025 05/11/2024 Depression Screening 09/14/2025 09/14/2024, 09/15/19 Disability Screening 09/14/2025 09/14/2024 SDOH Screening 09/14/2025 09/14/2024 Tobacco Screening 09/14/2025 09/14/2024 Mammogram 09/26/2025 09/27/2023, 09/27/2023 Eye Exam 01/05/2026 01/06/2024, 11/22, 12/12/2023, Additional history exists DTaP/Tdap/Td Vaccines (2 - Td or Tdap) 05/21/2027 05/20/2017 Colonoscopy 08/29/2027 Colorectal Cancer Screening 08/29/2027 RSV Patients and Patients Aged 60 years or older (1 - 1-dose 75+ series) 2036 COVID-19 Vaccine Completed 01/09/2024, , 06/19/2020, Additional [...] patient's age to complete this topic Meningococcal B Vaccine Aged Out No l onger eligible based on patient's age to complete [...] Diagnosis Comments POCT GLYCATED HEMOGLOBIN, TOTAL Routine 09/14/2024 2:58 PM EDT Type 2 diabetes mellitus with hyperlipidemia (CMS/HCC) (CMS/HCC) POCT GLUCOSE Routine 09/14/2024 2:55 PM EDT Type 2 diabetes mellitus with hyperlipidemia (CMS/HCC) (CMS/HCC) HEMATOXYLIN AND EOSIN STAIN Routine 08/28/2024 1:18 PM EDT GLUCOSE, WHOLE BLOOD Routine 08/28/2024 10:44 AM EDT PTH, INTACT WITHOUT CALCIUM Routine 07/23/2024 3:58 PM EDT Age-related osteoporosis without current pathological fracture VITAMIN D,25-OH,TOTAL,IA Routine 07/23/2024 3:58 PM EDT Age-related osteoporosis without current pathological fracture COMPREHENSIVE METABOLIC PANEL Routine 07/23/2024 3:58 PM EDT Type 2 diabetes mellitus with hyperlipidemia (CMS/HCC) (CMS/HCC) AMB REFERRAL TO OPHTHALMOLOGY Routine 01/06/2024 Anatomical narrow angle of both eyes BI MAMMOGRAM SCREENING TOMOSYNTHESIS BILATERAL Routine 09/27/2023 3:55 PM EDT LIPID PANEL, STANDARD Routine 09/27/2023 10:14 AM EDT Prediabetes Dyslipidemia from Last 3 Months or Most Recently Relevant to Health Maintenance Results * (ABNORMAL) POCT HGB A1C (09/14/2024 2:58 PM EDT) Hemoglobin A1C 7.2(A) 4.0 - 5.7 % QC Media Lot # [id number] Lot# Expiration Date Blood 09/14/2024 2:58 PM EDT us Lanny Strong [facility] POINT OF CARE TEST ENTER/EDIT OR DERABLES Final Result * POCT Glucose (09/14/2024 2:55 PM EDT) Glucose Blood, POC 175 60 - 200 mg/dL QC Media Lot # [id number] Lot# Expiration Date [id number] Blood Capillary blood specimen / Unknown 09/14/2024 2:55 PM EDT Lanny BACK POINT OF CARE TEST ENTER/EDIT OR DERABLES Final Result * Hematoxylin and Eosin Stain (08/28/2024 1:18 PM EDT) 08/28/2024 1:18 PM EDT 08/28/2024 2:10 PM EDT Narrative [facility] - 08/30/2024 2:43 PM EDT ----- ------- Name: MusaAbimaelLouise Alcira Age/Sex: 64/F : 1960 Unit#: [id number] Attend Dr: Liv Duque MD Re08/28/24 Status: [facility] Location: .SSS Disch: ----- ------- SPEC : [id number] RECD: 08/28/24 STATUS: LETI BERNARDO NUM: [id number] HEIKE: 08/28/24-8 [facility] [address]: Liv Duque MD ENTERED: 08/28/24 SP TYPE: Surgical OTHR DR: LANNY STRONG LINE WALKER ORDERED: HE Stain/18, Gross Micro L4/6, IHC/2, Specials Gr. 1/2, Special st. 2/3, H. pylori/2, PASF/2, AB/PAS/3 Diagnosis A. Duodenum, biopsy: Duodenal mucosa with mildly increased intraepithelial lymphocytes and preserved villous architecture. See comment. B. Stomach, antrum, biopsy: Antral-type oxyntic mucosa with mild chronic inactive inflammation; no Helicobacter organisms seen. C. Stomach, body, biopsy: Oxyntic mucosa with mild chronic inactive inflammation; no Helicobacter organisms seen. D. Esophagus, lower, biopsy: Active esophagitis (rare neutrophils); no atypia or fungi identified. E. Esophagus, middle, biopsy: Active esophagitis (mostly neutrophils with fewer eosinophils); no atypia or fungi identified. F. Colon, sigmoid, polypectomies: Colonic mucosa with mild surface hyperplastic changes; multiple additional levels examined. COMMENT: The findings in the duodenum are non-specific. The differential diagnosis is broad and includes infection (e.g. viral or H. pylori), medication/drugs (e.g. NSAIDs), gluten sensitivity/celiac disease, bacterial overgrowth, tropical sprue, immunodeficiency syndromes (e.g. IgA deficiency, CVID), autoimmune enteropathy, Crohns and collagen vascular disease, among others. Please correlate with clinical and other laboratory findings. Clinical History Pre-Op Dx: Dysphagia, screening Post-Op Dx: Esophagitis Grade B, gastritis, duodenitis, cricopharyngeal narrowing, colon polyps, hemorrhoids Microscopic Description A-F. Microscopic sections examined. No metaplastic changes are seen, supported by AB/PAS stains (A, B and C); no fungi are seen in parts D and D, supported by PAS stain. No Helicobacter organisms are seen, supported by H. pylori immunostain (B and C). CONTINUED ON NEXT PAGE ----- ------- Name: MusaAbimaelLouise I Age/Sex: 64/F : 1960 Unit#: [id number] Attend Dr: Liv Duque MD Re08/28/24 Status: [facility] Location: [facility] Disch: ----- ------- SPEC : [id number] RECD: 08/28/24 STATUS: LETI BERNARDO NUM: [id number] HEIKE: 08/28/[address] [facility] [address]: Liv Duque MD ENTERED: 08/28/24 SP TYPE: Surgical OTHR DR: LANNY STRONG NP ORDERED: HE Stain/18, Gross Micro L4/6, IHC/2, Specials Gr. 1/2, Special st. 2/3, H. pylori/2, PASF/2, AB/PAS/3 Material Received A. Duodenum bx's B. Gastric antrum bx's C. Gastric body bx's D. Lower esophagus bx's E. Middle esophagus bx's F. Sigmoid colon polyps Gross Description Received in 6 parts. A. Received in formalin labeled duodenum biopsies are 4 fragments of pink white soft tissue measuring 0.2-0.3 cm in greatest dimension which are wrapped in lens paper and entirely submitted for microscopic examination, 4 pieces in cassette A. B. Received in formalin labeled gastric antrum biopsies are 2 fragments of hawk-white soft tissue measuring 0.4 and 0.4 cm in greatest dimension which are wrapped in lens paper and entirely submitted for microscopic examination, 2 pieces in cassette B. C. Received in formalin labeled gastric body biopsies are 3 fragments of hawk-white soft tissue measuring 0.2-0.3 cm in greatest dimension which are wrapped in lens paper and entirely submitted for microscopic examination, 3 pieces in cassette C. D. Received in formalin labeled lower esophagus biopsies are 4 fragments of translucent, white soft tissue measuring 0.3-0.4 cm in greatest dimension which are wrapped in lens paper and entirely submitted for microscopic examination, 4 pieces in cassette D. E. Received in formalin labeled middle esophagus biopsies are 4 fragments of translucent, white soft tissue measuring 0.2-0.4 cm in greatest dimension which are wrapped in lens paper and entirely submitted for microscopic examination, 4 pieces in cassette E. F. Received in formalin labeled sigmoid colon polyps is a flattened strip of translucent, hawk-white tissue measuring 1.7 x 0.5 x 0.1 cm along with a rounded fragment of pink white soft tissue measuring 0.2 cm in diameter. The specimen is wrapped in lens paper and entirely submitted for microscopic examination, 2 pieces in cassette F. ([facility]) Special studies ordered and performed: Immunostain for H. pylori on B and C; AB/PAS stains on A, B and C; PAS stains for fungi on D and E CONTINUED ON NEXT PAGE ----- ------- Name: Louise Vigil I Age/Sex: 64/F : 1960 Unit#: [id number] Attend Dr: Liv Duque MD Re08/28/24 Status: [facility] Location: [facility] Disch: ----- ------- SPEC : [id number] RECD: 08/28/24 STATUS: LETI BERNARDO NUM: [id number] HEIKE: 08/28/24-13[address] [facility] [address]: Liv Duque MD ENTERED: 08/28/24 SP TYPE: Surgical OTHR DR: LANNY STRONG NP ORDERED: HE Stain/18, Gross Micro L4/6, IHC/2, Specials Gr. 1/2, Special st. 2/3, H. pylori/2, PASF/2, AB/PAS/3 IHC S/NG Disclaimer NOTE: Unless otherwise stated, all tissue is formalin-fixed and paraffin-embedded. Some or all of the immunohistochemical tests reported herein may have been developed and their performance characteristics determined by [facility]. They have not been cleared or approved by the U.S. Food and Drug Administration (FDA). However, the FDA has determined that such clearance or approval is not necessary. This laboratory is certified under the Clinical Laboratory Improvement Amendments of 1988 (CLIA) as qualified to perform high complexity clinical laboratory testing. Copies To: LANNY STRONG NP [address] [place] [address] Liv Duque MD [facility] [address] [place] [id number] [email or web address] ----- ------- Signed (signature on file) Antonio Slater MD 08/30/24 1443 ----- ------- END OF REPORT us Generic External Data Provider LAB BLOOD ORDERAB LES Final Result [facility] [address] [place] [address] [phone] * (ABNORMAL) Glucose, Whole Blood (08/28/2024 10:44 AM EDT) Glucose, Whole Blood 122(H) 60 - 115 mg/dL [facility] Comment:METER #: [id number] 08/28/2024 10:4 4 AM EDT 08/28/2024 10:47 AM EDT us Generic External Data Provider LAB BLOOD ORDERAB LES Final Result Performing Organization Address [facility]/ZIP Co de Phone Number [facility] [address] [place] [phone] * (ABNORMAL) Vitamin D, 25-Hydroxy, Total, Immunoassay (07/23/2024 3:58 PM EDT) Vitamin D 25-OH Total 14.6(L) >30 ng/mL [facility] Comment: Health Based Reference Values*< 20 ng/mL [id number] ng/mL Insufficient> 30 ng/mL Sufficient*Chepe CARRINGTON. N Engl J Med. 2007;357:266-280There is no well-established upper level of normal vitamin Dlevels. Some laboratories use 50 ng/mL as an upper limit ofnormal. However, toxicity is patient-dependent and may occurat any level. Careful correlation with the patient'spresentation is necessary and, if there is concern forvitamin D toxicity, treatment should be consideredirrespective of the serum level.Care must be taken in interpreting Vitamin D results fromdifferent laboratories and methodologies. Published datademonstrated that results from patients undergoinghemodialysis may show a negative bias when tested withvarious automated 25-OH vitamin D assays when compared toLC-MS/MS.When testing samples from patients whose predominant form ofVitamin D is Vitamin D2, such as patients receiving VitaminD2 supplementation, results that are subtherapeutic shouldbe confirmed with another method such as LC-MS/MS. Blood Venous blood specimen / Unknown 07/23/2024 3:58 PM EDT 07/23/2024 3:58 PM EDT Lanny Strong [facility] LAB BLOOD ORDERABLES Final Resul t Performing Organization Address [facility]/ZIP Co de Phone Number [facility] [address] [place] [address] [phone] * (ABNORMAL) PTH, Intact Without Calcium (07/23/2024 3:58 PM EDT) Parathyroid Hormone, Intact 79.6(H) 8.7 - 77.1 pg/mL [facility] Blood Venous blood specimen / Unknown 07/23/2024 3:58 PM EDT 07/23/2024 3:58 PM EDT [facility] LAB BLOOD ORDERABLES Final Resul t [facility] [address] [place] [address] [phone] * (ABNORMAL) Comprehensive Metabolic Panel (07/23/2024 3:58 PM EDT) Sodium 144 135 - 145 mmol/L [facility] Potassium 3.8 3.3 - 5.1 mmol/L [facility] Chloride 107 96 - 108 mmol/L [facility] Carbon Dioxide 28 22 - 29 mmol/L [facility] Anion Gap 13 12 - 20 [facility] Urea Nitrogen (BUN) 18(H) 9 - 16 mg/dL [facility] Creatinine, Serum 0.89 0.5 - 1.4 mg/dL [facility] Estimated Glomerular Filt Rate >60 [facility] Comment:Chronic Kidney Disea se: Estimated GFR < 60 mL/min/1.73j4Zgppod Kidney Disease: Estimated GFR < 15 mL/min/1.73m2 Glucose 119(H) 60 - 115 mg/dL [facility] Calcium 9.3 8.4 - 10.2 mg/dL [facility] Bilirubin, Total 0.4 0.0 - 1.0 mg/dL [facility] Aspartate Amino Transferase 28 5 - 31 U/L [facility] Alanine Aminotransferase 46(H) 0 - 31 U/L [facility] Total Protein 7.4 6.5 - 8.0 g/dL [facility] Albumin Level 4.2 3.5 - 5.0 g/dL [facility] Alkaline Phosphatase 115 39 - 117 U/L [facility] Blood Venous blood specimen / Unknown 07/23/2024 3:58 PM EDT 07/23/2024 3:58 PM EDT Lanny Strong ANP LAB BLOOD ORDERABLES Final Resul t [facility] [address] [place] [address] [phone] * Referral to Ophthalmology (01/06/2024) Cici Nunes OD OUTPATIENT REFERRAL ORDERABLES Final Result * BI Mammogram Screening Tomosynthesis Bilateral (09/27/2023 3:55 PM EDT) Anatomical Region Laterality Modality Breast Bilateral Mammography 09/27/2023 3:55 PM EDT Narrative 09/28/2023 10:08 AM EDT [facility] [address] [place] [address] Mammography Report Signed Patient: Louise Vigil I MR#: [id number] : 1960 Acct:[id number] Age/Sex: 63 / F ADM Date: 09/27/23 Loc: HO.MAMMO Attending Dr: Lanny Strong NP Ordering Physician: LANNY STRONG NP Results: 1Negative Date of Service: 09/27/23 Follow Up: 1 Year From Orig ina Mammogram Procedure(s): MM tomosynthesis screening BI Accession Number(s): [id number] cc: LANNY STRONG NP EXAMINATION: MM SCREENING [...] in OV> 09/28/23 1004 DD/ 1555 TD/TT: General Maintenance Engineer: Procedure Note Donotuseinterpreter, Image - 09/28/2023 [facility] [address] [place] [address] Mammography Report Signed Patient: Louise Vigil IMR#: [id number] : 2Acct:[id number] Age/Sex: 63 / FADM Date: 09/27/23 Loc: [facility] Attending Dr: Lanny Strong NP Ordering Physician: LANNY STRONG NPResults: 1Negative Date of Service: 09/27/23Follow Up: 1 Year From Orig inal Mammogram Procedure(s): MM tomosynthesis screening BI Accession Number(s): [id number] cc: LANNY STRONG NP EXAMINATION: MM SCREENING [...] in OV> 09/28/23 1004 DD/ 1555 TD/TT: General Maintenance Engineer: us Lanny Strong ANP IMG BI PROCEDURES Final Result * (ABNORMAL) Lipid Panel, Standard (09/27/2023 10:14 AM EDT) Triglycerides 159(H) <150 mg/dL [facility] Comment:Desirable Triglyceri de: less than 150 mg/dLBorderline High Triglyceride 150-199 mg/dLHigh Triglyceride: 200-499 mg/dLVery High Triglyceride: greater than or equal to 5OO mg/dL Cholesterol 218(H) <200 mg/dL [facility] Comment:Desirable Cholestero l: less than 200 mg/dLBorderline High Cholesterol: 200-239 mg/dLHigh Cholesterol: greater than 239 mg/dL LDL Cholesterol Calculated 129(H) <100 mg/dL [facility] Comment:Desirable LDL: less than 100 mg/dLNear Optimal/Above Optimal LDL: 110- 129 mg/dLBorderline High LDL: 130-159 mg/dLHigh LDL: 160-189 mg/dLVery High LDL: greater than or equal to 190 mg/dL HDL Cholesterol 58 >40 mg/dL [facility] Comment:Desirable HDL: great er than 40 mg/dL Note: This HDL assay may give artificially low results in patients with liver disease. Blood Venous blood specimen / Unknown 09/27/2023 10:14 AM EDT 09/27/2023 11:14 AM EDT us Lanny Strong ANP LAB BLOOD ORDERABLES Final Resul t [facility] [address] [place] [address] [phone] from Last 3 Months or Most Recently Relevant to Health Maintenance Insurance [facility] Care Teams Neurology Stroke Physician Relationship Specialty Start Date End Date Lanny Strong ANP [address] [place] [address] [place] [phone] PCP - General Family Medicine 01/13/22
[2024-09-18 03:23] LABS: Immunoglobulin A 487 mg/dL (70-320)
== END 2024-09-17 10:33 | disposition home or self-care (01) ==
LOC: HO.LAB 10:32
PROVIDERS: PCP Nurse Practitioner Primary Care; Visit Provider Internal Medicine
DX: K21.00 Gastro-esophageal reflux disease with esophagitis, without bleeding (principal); R13.10 Dysphagia, unspecified; K29.80 Duodenitis without bleeding; K63.5 Polyp of colon
CPT/HCPCS: 36415; 82784; 86364

== ENCOUNTER 2024-10-02 16:15 | Outpatient (REF) | payer OTHER, SELFPAY ==
--- OUTSIDE RECORDS SUMMARY | 2024-10-02 16:34 | XMS_ITS | Clinical Summary ---
Author Organization [employer] Address [address] [facility] [facility] [address] [place] [address] Care Team Providers Care Ring Sewer Name Role Phone Lanny Strong WONG Primary Care Provider [phone] Allergies No known active allergies Medications naproxen [...] Encounters Date Type Department Care Team Description 10/02/2024 11:15 AM EDT Office Visit [address] [address] Rosario Srinivasan CNM Abnormal vaginal bleeding (Primary Dx); Exposure of implanted vaginal mesh, initial encounter (CMS/HCC) 10/02/2024 Travel 10/01/2024 Telephone [facility] [address] [place] [phone] Dulce Maria Quintana MA 09/17/2024 Orders Only GENERIC EXTERNAL DATA DEPARTMENT Provider, Generic External Data 09/14/2024 2:15 PM EDT Office Visit [address] [address] Lanny Strong ANP Type 2 diabetes mellitus with hyperlipidemia (CMS/HCC) (CMS/[facility]) (Primary Dx); Age-related osteoporosis without current pathological fracture; Bilateral carpal tunnel syndrome 09/14/2024 Travel 09/13/[address] [address] Lanny Strong ANP chart prep 09/13/2024 Telephone [facility] [address] [place] [phone] Anand Callaway [place] Cologard Kit (Called patient twice to offer new cologard test kit. No answer. Message left with details and call back number.) 09/07/2024 Patient Outreach [facility] [address] [place] [address] Lanny Strong ANP Pre-visit Planning ([facility] unable to reach [facility]) 08/28/2024 Orders Only GENERIC EXTERNAL DATA DEPARTMENT Provider, Generic External Data 08/10/2024 Results Follow-Up [facility] [address] [place] [address] Lanny Strong ANP Vitamin D, 25-Hydroxy, Total, Immunoassay, PTH, Intact Without Calcium 07/13/2024 Orders Only [facility] [address] [place] [address] Lanny Strong ANP Age-related osteoporosis without current pathological fracture (Primary Dx) 07/13/2024 Results Follow-Up [facility] [address] [place] [address] Lanny Strong ANP BD DEXA Axial from Last 3 Months Social History Tobacco [...] with others, in a hotel, in a skilled nursing, living outside on the street, on a [...] Sign Reading Time Taken Comments Blood Pressure 120/74 10/02/2024 11:23 AM EDT Pulse 78 10/02/2024 11:23 AM EDT Temperature 37.1 C (98.8 F) 10/02/2024 11:23 AM EDT Respiratory Rate 14 10/02/2024 11:23 AM EDT Oxygen Saturation 97% 10/02/2024 11:23 AM EDT Inhaled Oxygen Concentration - - Weight 71.7 kg (158 lb) 10/02/2024 11:23 AM EDT Height 149.9 cm (4' 11 ) 05/11/2024 2:47 PM EDT Body Mass Index 31.91 05/11/2024 2:47 PM EDT Plan of Treatment Health Maintenance Due Date Last Done Comments [...] Screening 09/14/2025 09/14/2024 SDOH Screening 09/14/2025 09/14/2024 Mammogram 09/26/2025 09/27/2023, 09/27/2023 Tobacco Screening 10/02/2025 10/02/2024 Eye Exam 01/05/2026 01/06/2024, 11/22, 12/12/2023, Additional [...] Procedure Name Priority Date/Time Associated Diagnosis Comments TISSUE TRANSGLUTAMINASE AB, IGA Routine 09/17/2024 11:24 AM EDT IMMUNOGLOBULIN A Routine 09/17/2024 11:2 4 AM EDT POCT GLYCATED HEMOGLOBIN, TOTAL Routine 09/14/2024 2:58 PM EDT Type 2 diabetes mellitus with hyperlipidemia (CMS/HCC) (CMS/HCC) POCT GLUCOSE Routine 09/14/2024 2:55 PM EDT Type 2 diabetes mellitus with hyperlipidemia ([facility]/HCC) ([facility]) HEMATOXYLIN AND EOSIN STAIN Routine 08/28/2024 1:18 PM EDT GLUCOSE, WHOLE BLOOD Routine 08/28/2024 10:44 AM EDT PTH, INTACT WITHOUT CALCIUM Routine 07/23/2024 3:58 PM EDT Age-related osteoporosis without current pathological fracture VITAMIN D,25-OH,TOTAL,IA Routine 07/23/2024 3:58 PM EDT Age-related osteoporosis without current pathological fracture COMPREHENSIVE METABOLIC PANEL Routine 07/23/2024 3:58 PM EDT Type 2 diabetes mellitus with hyperlipidemia ([facility]) ([facility]) AMB REFERRAL TO OPHTHALMOLOGY Routine 01/06/2024 Anatomical narrow angle of both eyes BI MAMMOGRAM SCREENING TOMOSYNTHESIS BILATERAL Routine 09/27/2023 3:55 PM EDT LIPID PANEL, STANDARD Routine 09/27/2023 10:14 AM EDT Prediabetes Dyslipidemia from Last 3 Months or Most Recently Relevant to Health Maintenance Results * Tissue Transglutaminase Antibody, IgA (09/17/2024 11:24 AM EDT) Transglutaminase IgA <1.0 U/mL [facility] Comment:Value Interpretation ----- <15.0 Antibody not detected> or = 15.0 Antibody detectedTHIS TEST WAS PERFORMED AT:[facility] [place] [phone] WYMAN MD 09/17/2024 11:2 4 AM EDT 09/17/2024 11:24 AM EDT Generic External Data Provider LAB BLOOD ORDERAB LES Final Result Performing Organization Address [facility]/ZIP Co de Phone Number [facility] [address] [place] [phone] * (ABNORMAL) Immunoglobulin A (09/17/2024 11:24 AM EDT) Immunoglobulin A, Qn, Serum 487(A) 70 - 320 mg/dL [facility] Comment:THIS TEST WAS PERFOR MED AT:[facility] [place] [phone] WYMAN MD 09/17/2024 11:2 4 AM EDT 09/17/2024 11:24 AM EDT Generic External Data Provider LAB BLOOD ORDERAB LES Final Result Performing Organization Address [facility] Co de Phone Number [facility] [address] [place] [phone] * (ABNORMAL) POCT HGB A1C (09/14/2024 2:58 PM EDT) Hemoglobin A1C 7.2(A) 4.0 - 5.7 % QC Media Lot # [id number] Lot# Expiration Date 3 Blood 09/14/2024 2:58 PM EDT us Lanny BACK POINT OF CARE TEST ENTER/EDIT OR DERABLES Final Result * POCT Glucose (09/14/2024 2:55 PM EDT) Glucose Blood, POC 175 60 - 200 mg/dL [employer] Lot # [id number] Lot# Expiration Date 2755,026 Blood Capillary blood specimen / Unknown 09/14/2024 2:55 PM EDT us Lanny BACK POINT OF CARE TEST ENTER/EDIT OR DERABLES Final Result * Hematoxylin and Eosin Stain (08/28/2024 1:18 PM EDT) 08/28/2024 1:18 PM EDT 08/28/2024 2:10 PM EDT [facility] - 08/30/2024 2:43 PM EDT ----- ------- Name: MusaLouise Eli Age/Sex: 64/F : 1960 Unit#: [id number] Attend Dr: Liv Duque MD Re08/28/24 Status: [facility] Location: [facility] Disch: ----- ------- SPEC : [id number] RECD: 08/28/24-1410 STATUS: LETI BERNARDO NUM: [id number] HEIKE: 08/28/24-[address] [facility] [address]: Liv Duque MD ENTERED: 08/28/24-1420 SP TYPE: Surgical OTHR DR: LANNY STRONG [...] Vigil I Age/Sex: 64/F : 1960 Unit#: [id number] Attend Dr: Liv Duque MD Re08/28/24 Status: [facility] Location: [facility] Disch: ----- ------- SPEC : [id number] RECD: 08/28/24 STATUS: LETI BERNARDO NUM: [id number] HEIKE: 08/28/[address] [facility] [address]: Liv Duque MD ENTERED: 08/28/24 [...] microscopic examination, 2 pieces in cassette F. ([facility]) Special studies ordered and performed: Immunostain for H. pylori on B and C; AB/PAS stains on A, B and C; PAS stains for fungi on D and E CONTINUED ON NEXT PAGE ----- ------- Name: Louise Vigil I Age/Sex: 64/F : 1960 Unit#: [id number] Attend Dr: Liv Duque MD Re08/28/24 Status: [facility] Location: [facility] Disch: ----- ------- SPEC : [id number] RECD: 08/28/24 STATUS: LETI BERNARDO NUM: [id number] HEIKE: 08/28/24-[address] [facility] [address]: Liv Duque MD ENTERED: 08/28/24 [...] developed and their performance characteristics determined by [facility]. They have not been cleared or approved by the U.S. Food and Drug Administration (FDA). However, the FDA has determined that such clearance or approval is not necessary. This laboratory is certified under the Clinical Laboratory Improvement Amendments of 1988 (CLIA) as qualified to perform high complexity clinical laboratory testing. Copies To: LANNY STRONG NP [address] [place] [address] Liv Duque MD [facility] [address] [place] [id number] [email or web address] ----- ------- Signed (signature on file) Antonio Slater MD 08/30/24 1443 ----- ------- END OF REPORT us Generic External Data Provider LAB BLOOD ORDERAB LES Final Result [facility] [address] [place] [address] [phone] * (ABNORMAL) Glucose, Whole Blood (08/28/2024 10:44 AM EDT) Glucose, Whole Blood 122(H) 60 - 115 mg/dL [facility] Comment:METER #: [id number] 08/28/2024 10:4 4 AM EDT 08/28/2024 10:47 AM EDT Generic External Data Provider LAB BLOOD ORDERAB LES Final Result Performing Organization Address [facility]/ZIP Co de Phone Number [facility] [address] [place] [phone] * (ABNORMAL) Vitamin D, 25-Hydroxy, Total, Immunoassay (07/23/2024 3:58 PM EDT) Vitamin D 25-OH Total 14.6(L) >30 ng/mL [facility] Comment: Health Based Reference Values*< 20 ng/mL [id number] ng/mL Insufficient> 30 ng/mL Sufficient*Chepe CARRINGTON. N [...] PM EDT 07/23/2024 3:58 PM EDT Lanny BACK LAB BLOOD ORDERABLES Final Resul t Performing Organization Address [facility]/ZIP Co de Phone Number [facility] [address] [place] [address] [phone] * (ABNORMAL) PTH, Intact Without Calcium (07/23/2024 3:58 PM EDT) Parathyroid Hormone, Intact 79.6(H) 8.7 - 77.1 pg/mL [facility] Blood Venous blood specimen / Unknown 07/23/2024 3:58 PM EDT 07/23/2024 3:58 PM EDT [facility] LAB BLOOD ORDERABLES Final Resul t [facility] [address] [place] [address] [phone] * (ABNORMAL) Comprehensive Metabolic Panel (07/23/2024 3:58 PM EDT) Sodium 144 135 - 145 mmol/L [facility] Potassium 3.8 3.3 - 5.1 mmol/L [facility] Chloride 107 96 - 108 mmol/L [facility] Carbon Dioxide 28 22 - 29 mmol/L [facility] Anion Gap 13 12 - 20 [facility] Urea Nitrogen (BUN) 18(H) 9 - 16 mg/dL [facility] Creatinine, Serum 0.89 0.5 - 1.4 mg/dL [facility] Estimated Glomerular Filt Rate >60 [facility] Comment:Chronic Kidney Disea se: Estimated GFR < 60 mL/min/[id number] Kidney Disease: Estimated GFR < 15 mL/min/1.73m2 Glucose 119(H) 60 - 115 mg/dL [facility] Calcium 9.3 8.4 - 10.2 mg/dL [facility] Bilirubin, Total 0.4 0.0 - 1.0 mg/dL [facility] Aspartate Amino Transferase 28 5 - 31 U/L [facility] Alanine Aminotransferase 46(H) 0 - 31 U/L [facility] Total Protein 7.4 6.5 - 8.0 g/dL [facility] Albumin Level 4.2 3.5 - 5.0 g/dL [facility] Alkaline Phosphatase 115 39 - 117 U/L [facility] Blood Venous blood specimen / Unknown 07/23/2024 3:58 PM EDT 07/23/2024 3:58 PM EDT Lanny Strong ANP LAB BLOOD ORDERABLES Final Resul t [facility] [address] [place] [phone] [phone] * Referral to Ophthalmology (01/06/2024) Cici Nunes OD OUTPATIENT REFERRAL ORDERABLES Final Result * BI Mammogram Screening Tomosynthesis Bilateral (09/27/2023 3:55 PM EDT) Anatomical Region Laterality Modality Breast Bilateral Mammography 09/27/2023 3:55 PM EDT Narrative 09/28/2023 10:08 AM EDT [facility] [address] 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 IMG BI PROCEDURES Final Result * (ABNORMAL) Lipid Panel, Standard (09/27/2023 10:14 AM EDT) Triglycerides 159(H) <150 mg/dL [facility] Comment:Desirable Triglyceri de: less than 150 mg/dLBorderline High Triglyceride 150-199 mg/dLHigh Triglyceride: 200-499 mg/dLVery High Triglyceride: greater than or equal to 5OO mg/dL Cholesterol 218(H) <200 mg/dL [facility] Comment:Desirable Cholestero l: less than 200 mg/dLBorderline High Cholesterol: 200-239 mg/dLHigh Cholesterol: greater than 239 mg/dL LDL Cholesterol Calculated 129(H) <100 mg/dL [facility] Comment:Desirable LDL: less than 100 mg/dLNear Optimal/Above Optimal LDL: 110- 129 mg/dLBorderline High LDL: 130-159 mg/dLHigh LDL: 160-189 mg/dLVery High LDL: greater than or equal to 190 mg/dL HDL Cholesterol 58 >40 mg/dL [facility] Comment:Desirable HDL: great er than 40 mg/dL Note: This HDL assay may give artificially low results in patients with liver disease. Blood Venous blood specimen / Unknown 09/27/2023 10:14 AM EDT 09/27/2023 11:14 AM EDT Lanny Strong ANP LAB BLOOD ORDERABLES Final Resul t [facility] [address] [place] [phone] from Last 3 Months or Most Recently Relevant to Health Maintenance Insurance [employer] Care Teams Ring Sewer Relationship Specialty Start Date End Date Lanny Strong ANP [address] [place] [address] [place] [address] PCP - General Family Medicine 01/13/22
[2024-10-03 03:51] LABS: Bacterial Vaginosis PCR POSITIVE (Negative); Candida Group PCR NOT DETECTED (Not Detect); Candida glab krusei PCR NOT DETECTED (Not Detect); Trichomonas vaginalis PCR NOT DETECTED (Not Detect)
== END 2024-10-02 16:16 | disposition home or self-care (01) ==
LOC: HO.HHCLNP 16:15
PROVIDERS: Visit Provider Advanced Practice Midwife
DX: Z11.51 Encounter for screening for human papillomavirus (HPV) (principal); Z11.2 Encounter for screening for other bacterial diseases; N93.9 Abnormal uterine and vaginal bleeding, unspecified
CPT/HCPCS: 81515; 87626; 88175

== ENCOUNTER 2024-10-11 14:44 | Outpatient (REF) | payer OTHER, SELFPAY ==
--- NOTE | ~2024-10-11 | MM_ITS ---
EXAMINATION: MM SCREENING DIGITAL BREAST TOMOSYNTHESIS, BILATERAL CLINICAL INFORMATION: Screening. Asymptomatic. COMPARISON: Mammography: Comparison is made with available priors TECHNIQUE: Digital breast mammography with tomosynthesis is performed in both the craniocaudal and mediolateral oblique views along with computer-aided detection (CAD). FINDINGS: The breasts are heterogeneously dense, which may obscure small masses (ACR BI-RADS breast composition Category c). There are no significant masses, abnormal calcifications, or other abnormalities. MM/MM tomosynthesis screening BI IMPRESSION: No mammographic evidence of malignancy. ASSESSMENT: BI-RADS BI-RADS 1 - Negative RECOMMENDATION: Routine annual mammography screening. 1 year F/U This examination should not preclude the clinical evaluation of a suspicious palpable abnormality. This patient's information was entered into a reminder system with a target due date for their next mammogram. Electronically signed by: Radha Woodruff DO 10/16/2024 09:41 AM EDT
--- OUTSIDE RECORDS SUMMARY | 2024-10-11 14:49 | XMS_ITS | Clinical Summary ---
Author Organization [employer] Address [address] [place] [address] Care Team Providers Care Contract Designer Name Role Phone Lanny Strong WONG Primary Care Provider [phone] Allergies No known active allergies Medications naproxen [...] eorder (will not trigger notification to Pharmacy)) metroNIDAZOLE (Flagyl) 500 MG tablet Take 1 tablet (500 mg) by mouth 2 times daily for 7 days. 14 tablet 025 2024 Active Problems Problem Noted Date Diagnosed [...] Encounters Date Type Department Care Team Description 10/08/2024 Results Follow-Up [address] [address] Poonam Melchor CNM Pap Smear 10/03/2024 Orders Only [address] [address] Poonam Melchor CNM 10/03/2024 Results Follow-Up [address] [address] Poonam Melchor CNM Bacterial Vaginosis 10/02/2024 11:15 AM EDT Office Visit [address] [address] Poonam Melchor CNM Abnormal vaginal bleeding (Primary Dx); Exposure of implanted vaginal mesh, initial encounter ([facility]) 10/02/2024 Orders Only [address] [address] Poonam Melchor CNM 10/02/2024 Travel 10/01/2024 Telephone [facility] [address] [place] [phone] Dulce Maria Quintana [place] 09/17/2024 Orders Only GENERIC EXTERNAL DATA DEPARTMENT Provider, Generic External Data 09/14/2024 2:15 PM EDT Office Visit [address] [address] Lanny Strong ANP Type 2 diabetes mellitus with hyperlipidemia (CMS/HCC) (CMS/[facility]) (Primary Dx); Age-related osteoporosis without current pathological fracture; Bilateral carpal tunnel syndrome 09/14/2024 Travel 09/13/2024 Telephone [facility] [address] [place] [phone] Lanny Strong ANP chart prep 09/13/2024 Telephone [facility] [address] [place] [address] Anand Callaway [place] Cologard Kit (Called patient twice to offer new cologard test kit. No answer. Message left with details and call back number.) 09/07/2024 Patient Outreach [facility] [address] [place], [place] [phone] Lanny Strong ANP Pre-visit Planning (SDOH unable to reach LVM) 08/28/2024 Orders Only GENERIC EXTERNAL DATA DEPARTMENT Provider, Generic External Data 08/10/2024 Results Follow-Up [address] [address] Lanny Strong ANP Vitamin D, 25-Hydroxy, Total, Immunoassay, PTH, Intact Without Calcium 07/13/2024 Orders Only [address] [address] Lanny Strong ANP Age-related osteoporosis without current pathological fracture (Primary Dx) 07/13/2024 Results Follow-Up [address] [address] Lanny Strong ANP BD DEXA Axial from [...] with others, in a hotel, in a senior living, living outside on the street, on a [...] Years (1 of 2 - PCV) 1980 Zoster Vaccines (1 of 2) 05/30/2011 Lipid [...] Completed 01/09/2024, , 06/19/2020, Additional history exists HPV/Cotest Discontinued 10/02/2024 Pap Smear Discontinued 10/02/2024 Cervical Cancer Screening Discontinued HIB Vaccines Aged [...] Procedure Name Priority Date/Time Associated Diagnosis Comments BACTERIAL VAGINOSIS PANEL Routine 10/02/2024 11:50 AM EDT PAP SMEAR Routine 10/02/2024 11:40 AM EDT Abnormal vaginal bleeding HPV DNA, LOW/HIGH RISK Routine 11:40 AM EDT TISSUE TRANSGLUTAMINASE AB, IGA Routine 09/17/2024 11:24 AM EDT IMMUNOGLOBULIN A Routine 09/17/2024 11:2 4 AM EDT POCT GLYCATED HEMOGLOBIN, TOTAL Routine 09/14/2024 2:58 PM EDT Type 2 diabetes mellitus with hyperlipidemia (CMS/HCC) ([facility]) POCT GLUCOSE Routine 09/14/2024 2:55 PM EDT Type 2 diabetes mellitus with hyperlipidemia (CMS/HCC) ([facility]) HEMATOXYLIN AND EOSIN STAIN Routine 08/28/2024 1:18 [...] Relevant to Health Maintenance Results * (ABNORMAL) Bacterial Vaginosis (10/02/2024 11:50 AM EDT) TRICHOMONAS VAGINALIS DETECTION BY PCR NOT DETECTED Not Detect [facility] BACTERIAL VAGINOSIS DETECTION BY PCR POSITIVE(A) Negative [facility] Comment:The BV organism targ ets of the Xpert Xpress MVP test can becommensal in women; Xpert Xpress MVP positive results forbacterial vaginosis should be considered in conjunction withother clinical and patient information to determine thedisease status. Organisms that are not detected by the XpertXpress MVP test have also been reported to be associatedwith BV and aerobic vaginitis.The Xpert Xpress MVP test performance has not been evaluatedin patients under the age of 14. KASSANDRA GROUP DETECTION BY PCR NOT DETECTED Not Detect [facility] Kassandra glab krusei PCR NOT DETECTED Not Detect [facility] 10/02/2024 11:5 0 AM EDT 10/02/2024 4:17 PM EDT us Poonam Melchor CNM LAB MICROBIOLOGY - GENERA L ORDERABLES Final Result [facility] [address] [place] [phone] * HPV DNA, Low/High Risk (10/02/2024 11:40 AM EDT) HPV High Risk Negative Negative [facility] HPV Genotype 16 Negative Negative [facility] HPV Genotype 18 Negative Negative [facility] Comment:HPV testing performe d at [facility] (CLIA#[id number]), [address] [place] [address].Testing for HPV was performed using the Los ANTOINE 6800system. The presence of HPV in the female genital tract isassociated with a number of diseases, including cervicalcarcinoma. The HPV DNA high risk pool tests for HPV 31, 33,35, 39, 45, 51, 52, 56, 58, 59, 66 and 68. The testing forHPV 16 and 18 genotypes has also been performed. A positiveresult indicates detection of nucleic acid sequences fromone or more subtypes, whereas a negative result indicatessuch sequences were not detected. 10/02/2024 11:4 0 AM EDT 10/03/2024 8:14 AM EDT us Poonam Melchor [facility] LAB BLOOD ORDERABLES Angelique lynne Result [facility] [address] [place] [phone] * Pap Smear (10/02/2024 11:40 AM EDT) Swab Vaginal structure / Unknown 10/02/2024 11:40 AM EDT 10/03/2024 8:14 AM EDT Eron [facility] - 10/08/2024 11:33 AM EDT ----- ------- Name: Louise Vigil I Age/Sex: 64/F : 1960 Unit#: [id number] Attend Dr: POONAM MELCHOR CNM Re10/02/24 Status: [facility]: ----- ------- SPEC : [id number] RECD: 10/03/24 STATUS: LETI BERNARDO NUM: [id number] HEIKE: 10/02/[address] [facility] [address]: POONAM MELCHOR CNM ENTERED: 10/03/24 SP TYPE: Pap Smr OTHR DR: ORDERED: Pap Smear, PAP path review Interpretation Satisfactory for evaluation. Negative for intraepithelial lesion or malignancy. HPV High Risk: Negative HPV Genotyping 16: Negative HPV Genotyping 18: Negative Clinical Information LMP: Postmenopausal Previous PAP test: Unknown date/findings Other surgery: Hysterectomy Other history: Abnormal vaginal bleeding Material Received ThinPrep-Vaginal PAP Disclaimer As of December 14, 2023, the technical services to include automated prescreening performed by the ThinPrep Imaging System, PAP screening and HPV testing will be performed at [facility] (CLIA #[id number]), [address] [place] [address]. Testing for HPV was performed using the Los ANTOINE 6800 system. The presence of HPV in the female genital tract is associated with a number of diseases, including cervical carcinoma. The HPV DNA high risk pool tests for HPV 31, 33, 35, 39, 45, 51, 52, 56, 58, 59, 66 and 68. The testing for HPV 16 and 18 genotypes has also been performed. A positive result indicates detection of nucleic acid sequences from one or more subtypes, whereas a negative result indicates such sequences were not detected. All professional services are performed by [facility] ([address] [place] [address]; ; CLIA #[id number]). The PAP Test is a screening procedure with the inherent possibility of both false negative and false positive results. Results should be interpreted in the context of historic and current clinical findings. Reliability of the PAP Test is enhanced by performing the test on a regular repetitive basis. CONTINUED ON NEXT PAGE ----- ------- Name: Louise Vigil I Age/Sex: 64/F : 1960 Unit#: [id number] Attend Dr: POONAM MELCHOR CNM Re10/02/24 Status: [facility] Disch: ----- ------- SPEC : [id number] RECD: 10/03/24 STATUS: LETI BERNARDO NUM: [id number] HEIKE: 10/02/24-[address] [facility] [address]: POONAM MELCHOR CNM ENTERED: 10/03/24 SP TYPE: Pap Brielle VALENZUELA DR: ORDERED: Pap Smear, PAP path review ----- ------- Signed (signature on file) Jyoti Rafalowski, MD 10/08/24 1133 ----- ------- END OF REPORT Poonam Melchor [facility] CYTOLOGY ORDERABLES F inal Result Performing Organization Address [facility] de Phone Number [facility] [address] [place] [phone] * Tissue Transglutaminase Antibody, IgA (09/17/2024 11:24 AM EDT) Pathologist [facility] Transglutaminase IgA <1.0 U/mL [facility] Comment:Value Interpretation ----- <15.0 Antibody not detected> or = 15.0 Antibody detectedTHIS TEST WAS PERFORMED AT:[facility] [place] [phone] WYMAN MD 09/17/2024 11:2 4 AM EDT 09/17/2024 11:24 AM EDT Generic External Data Provider LAB BLOOD ORDERAB LES Final Result Performing Organization Address [facility] Co de Phone Number [facility] [address] [place] [phone] * (ABNORMAL) Immunoglobulin A (09/17/2024 11:24 AM EDT) Immunoglobulin A, Qn, Serum 487(A) 70 - 320 mg/dL [facility] Comment:THIS TEST WAS PERFOR MED AT:[facility] [place] [phone] WYMAN MD 09/17/2024 11:2 4 AM EDT 09/17/2024 11:24 AM EDT Generic External Data Provider LAB BLOOD ORDERAB LES Final Result [facility] [address] [place] [phone] * (ABNORMAL) POCT HGB A1C (09/14/2024 2:58 PM EDT) Pathologist [facility] Hemoglobin A1C 7.2(A) 4.0 - 5.7 % QC Media Lot # [id number] Lot# Expiration Date 3, Blood 09/14/2024 2:58 PM EDT Lanny Strong ANP POINT OF CARE TEST ENTER/EDIT OR DERABLES Final Result * POCT Glucose (09/14/2024 2:55 PM EDT) [facility] Glucose Blood, POC 175 60 - 200 mg/dL QC Media Lot # [id number] Lot# Expiration Date [id number] Blood Capillary blood specimen / Unknown 09/14/2024 2:55 PM EDT Lanny Strong ANP POINT OF CARE TEST ENTER/EDIT OR DERABLES Final Result * Hematoxylin and Eosin Stain (08/28/2024 1:18 PM EDT) 08/28/2024 1:18 PM EDT 08/28/2024 2:10 PM EDT Narrative [facility] - 08/30/2024 2:43 PM EDT ----- ------- Name: Louise Vigil I Age/Sex: 64/F : 1960 [id number] Unit#: [id number] Attend Dr: Liv Duque MD Re08/28/24 Status: [facility] Location: [facility] Disch: ----- ------- SPEC : [id number] RECD: 08/28/24-141 STATUS: SANJAYSima BERNARDO NUM: [id number] HEIKE: 08/28/24-[address] [facility] [address]: Liv Duque MD ENTERED: 08/28/24 SP TYPE: Surgical OTHR DR: LANNY STRONG PSYCHOLOGY ASSOCIATE ORDERED: HE Stain/18, Gross Micro L4/6, IHC/2, [...] Vigil I Age/Sex: 64/F : 1960 Unit#: [id number] Attend Dr: Liv Duque MD Re08/28/24 Status: [facility] Location: [facility] Disch: ----- ------- SPEC : [id number] RECD: 08/28/24-1410 STATUS: LETI BERNARDO NUM: [id number] HEIKE: 08/28/24-[address] [facility] [address]: Liv Duque MD ENTERED: 08/28/24-8692 SP TYPE: Surgical OTHR DR: LANNY STRONG [...] microscopic examination, 2 pieces in cassette F. ([facility]) Special studies ordered and performed: Immunostain for H. pylori on B and C; AB/PAS stains on A, B and C; PAS stains for fungi on D and E CONTINUED ON NEXT PAGE ----- ------- Name: Louise Vigil I Age/Sex: 64/F : 1960 Unit#: [id number] Attend Dr: Liv Duque MD Re08/28/24 Status: [facility] Location: [facility] Disch: ----- ------- SPEC : [id number] RECD: 08/28/24-1410 STATUS: LETI BERNARDO NUM: [id number] HEIKE: 08/28/24-[address] [facility] [address]: Liv Duque MD ENTERED: 08/28/24-1420 [...] developed and their performance characteristics determined by [facility]. They have not been cleared or approved by the U.S. Food and Drug Administration (FDA). However, the FDA has determined that such clearance or approval is not necessary. This laboratory is certified under the Clinical Laboratory Improvement Amendments of 1988 (CLIA) as qualified to perform high complexity clinical laboratory testing. Copies To: LANNY STRONG NP [address] [place], [place] [id number] Liv Duque MD [facility] [address] [place] [address] [phone] [email or web address] [employer] ----- ------- Signed (signature on file) Antonio Slater MD 08/30/24 1443 ----- ------- END OF REPORT Generic External Data Provider LAB BLOOD ORDERAB LES Final Result Performing Organization Address [facility] Co de Phone Number [facility] [address] [place] [phone] * (ABNORMAL) Glucose, Whole Blood (08/28/2024 10:44 AM EDT) Pathologist [facility] Glucose, Whole Blood 122(H) 60 - 115 mg/dL [facility] Comment:METER #: [id number] 08/28/2024 10:4 4 AM EDT 08/28/2024 10:47 AM EDT Generic External Data Provider LAB BLOOD ORDERAB LES Final Result Performing Organization Address [facility] de Phone Number [facility] [address] [place] [phone] * (ABNORMAL) Vitamin D, 25-Hydroxy, Total, Immunoassay (07/23/2024 3:58 PM EDT) Pathologist [facility] Vitamin D 25-OH Total 14.6(L) >30 ng/mL [facility] Comment: Health Based Reference Values*< 20 ng/mL Qrnyyywmx26-04 ng/mL Insufficient> 30 ng/mL Sufficient*Chepe CARRINGTON. N [...] 3:58 PM EDT 07/23/2024 3:58 PM EDT us Lanny Strong [facility] LAB BLOOD ORDERABLES Final Resul t Performing Organization Address [facility]/ZIP Co de Phone Number [facility] [address] [place] [phone] * (ABNORMAL) PTH, Intact Without Calcium (07/23/2024 3:58 PM EDT) Parathyroid Hormone, Intact 79.6(H) 8.7 - 77.1 pg/mL [facility] Blood Venous blood specimen / Unknown 07/23/2024 3:58 PM EDT 07/23/2024 3:58 PM EDT us Lanny Strong [facility] LAB BLOOD ORDERABLES Final Resul t Performing Organization Address City/[facility]/ZIP Co de Phone Number [facility] [address] [place] [phone] * (ABNORMAL) Comprehensive Metabolic Panel (07/23/2024 3:58 PM EDT) Sodium 144 135 - 145 mmol/L [facility] Potassium 3.8 3.3 - 5.1 mmol/L [facility] Chloride 107 96 - 108 mmol/L [facility] Carbon Dioxide 28 22 - 29 mmol/L [facility] Anion Gap 13 12 - 20 [facility] Urea Nitrogen (BUN) 18(H) 9 - 16 mg/dL [facility] Creatinine, Serum 0.89 0.5 - 1.4 mg/dL [facility] Estimated Glomerular Filt Rate >60 [facility] Comment:Chronic Kidney Disea se: Estimated GFR < 60 mL/min/[id number] Kidney Disease: Estimated GFR < 15 mL/min/1.73m2 Glucose 119(H) 60 - 115 mg/dL [facility] Calcium 9.3 8.4 - 10.2 mg/dL [facility] Bilirubin, Total 0.4 0.0 - 1.0 mg/dL [facility] Aspartate Amino Transferase 28 5 - 31 U/L [facility] Alanine Aminotransferase 46(H) 0 - 31 U/L [facility] Total Protein 7.4 6.5 - 8.0 g/dL [facility] Albumin Level 4.2 3.5 - 5.0 g/dL [facility] Alkaline Phosphatase 115 39 - 117 U/L [facility] Blood Venous blood specimen / Unknown 07/23/2024 3:58 PM EDT 07/23/2024 3:58 PM EDT us Lanny BACK LAB BLOOD ORDERABLES Final Resul t [facility] [address] [place] [phone] * Referral to Ophthalmology (01/06/2024) Cici Nunes OD OUTPATIENT REFERRAL ORDERABLES Final Result * BI Mammogram Screening Tomosynthesis Bilateral (09/27/2023 3:55 PM EDT) Anatomical Region Laterality Modality Breast Bilateral Mammography 09/27/2023 3:55 PM EDT Narrative 09/28/2023 10:08 AM EDT [address] [place], [place] [address] Mammography Report Signed Patient: Louise Vigil I MR#: [id number] : 1960 Acct:[id number] Age/Sex: 63 / F ADM Date: 09/27/23 Loc: HO.MAMMO Attending Dr: Lanny Strong NP Ordering Physician: LANNY STRONG NP Results: 1Negative Date of Service: 09/27/23 Follow Up: 1 Year From Orig inal Mammogram Procedure(s): MM tomosynthesis screening BI Accession Number(s): [id number] cc: LANNY STRONG NP EXAMINATION: MM SCREENING [...] in OV> 09/28/23 1004 DD/ 1555 TD/TT: Electronics Teacher: Procedure Note Donotuseinterpreter, Image - 09/28/[address] [place] [address] Mammography Report Signed Patient: Louise Vigil [facility]#: [id number] : 2Acct:[id number] Age/Sex: 63 / FADM Date: 09/27/23 Loc: HO.MAMMO Attending Dr: Lanny Strong NP Ordering Physician: LANNY STRONG NPResults: 1Negative Date of Service: 09/27/23Follow Up: 1 Year From Orig inal Mammogram Procedure(s): MM tomosynthesis screening BI Accession Number(s): [id number] cc: LANNY STRONG NP EXAMINATION: MM SCREENING [...] in OV> 09/28/23 1004 DD/ 1555 TD/TT: Electronics Teacher: Lanny Strong ANP IM BI PROCEDURES Final Result * (ABNORMAL) Lipid Panel, Standard (09/27/2023 10:14 AM EDT) Triglycerides 159(H) <150 mg/dL [facility] Comment:Desirable Triglyceri de: less than 150 mg/dLBorderline High Triglyceride 150-199 mg/dLHigh Triglyceride: 200-499 mg/dLVery High Triglyceride: greater than or equal to 5OO mg/dL Cholesterol 218(H) <200 mg/dL [facility] Comment:Desirable Cholestero l: less than 200 mg/dLBorderline High Cholesterol: 200-239 mg/dLHigh Cholesterol: greater than 239 mg/dL LDL Cholesterol Calculated 129(H) <100 mg/dL [facility] Comment:Desirable LDL: less than 100 mg/dLNear Optimal/Above Optimal LDL: 110- 129 mg/dLBorderline High LDL: 130-159 mg/dLHigh LDL: 160-189 mg/dLVery High LDL: greater than or equal to 190 mg/dL HDL Cholesterol 58 >40 mg/dL [facility] Comment:Desirable HDL: great er than 40 mg/dL Note: This HDL assay may give artificially low results in patients with liver disease. Blood Venous blood specimen / Unknown 09/27/2023 10:14 AM EDT 09/27/2023 11:14 AM EDT Lanny Strong [facility] LAB BLOOD ORDERABLES Final Resul t [facility] [address], [place] [phone] from Last 3 Months or Most Recently Relevant to Health Maintenance Insurance [facility] Care Teams Contract Designer Relationship Specialty Start Date End Date Lnany Strong ANP [address] [place] [address] PCP - General Family Medicine 01/13/22
== END 2024-10-11 14:45 | disposition home or self-care (01) ==
LOC: HO.MAMMO 14:44
PROVIDERS: PCP Nurse Practitioner Primary Care; Visit Provider Nurse Practitioner Primary Care
DX: Z12.31 Encounter for screening mammogram for malignant neoplasm of breast (principal)
CPT/HCPCS: 77063; 77067

== ENCOUNTER → 2024-10-11 14:45 | Outpatient (BNV) | payer OTHER, SELFPAY | PROVIDERS: PCP Nurse Practitioner Primary Care; Visit Provider Internal Medicine | DX: Z12.31 Encounter for screening mammogram for malignant neoplasm of breast (principal) | CPT/HCPCS: 77063; 77067 ==